=== PATIENT | female | born 1955 | race Caucasian/White ===

== ENCOUNTER 2017-05-02 07:52 | Emergency (ER) | payer OTHER ==
[2017-05-02] MEDS ORDERED: MORPHINE SULFATE 4 MG/ML SYRINGE IV STA (08:32)
--- NOTE | 2017-05-02 08:53 | ED ---
General Adult HPI - General Chief complaint: Chest Pain Stated complaint: Chest Pain Time Seen by Provider: 05/02/17 08:23 Source: patient, RN notes reviewed, old records reviewed Mode of arrival: wheelchair Limitations: no limitations - History of Present Illness Initial comments: This is a 62-year-old female to the ER for evaluation. Patient presents today for evaluation regarding chest pain. Patient does have history of chest pain. Patient is chest pain today is right-sided and reproducible. Worse with moving worse with moving her right arm. No fevers cough or congestion, no travel history. - Related Data Home Medications Medication Instructions Recorded Confirmed Atorvastatin Calcium [Lipitor] 10 mg PO HS 05/02/17 05/02/17 Cholecalciferol [Vitamin D3] 1,000 unit PO DAILY 05/02/17 05/02/17 Fesoterodine Fumarate [Toviaz] 8 mg PO HS 05/02/17 05/02/17 Multivitamins, Thera [Multivitamin 1 tab PO DAILY 05/02/17 05/02/17 (formulary)] Allergies Allergy/AdvReac Type Severity Reaction Status Date / Time No Known Allergies Allergy Unverified 05/02/17 08:46 Review of Systems ROS Statement: Those systems with pertinent positive or pertinent negative responses have been documented in the HPI. ROS Other: All systems not noted in ROS Statement are negative. Past Medical History Past Medical History: No Reported History History of Any Multi-Drug Resistant Organisms: None Reported Past Surgical History: Appendectomy, Section Additional Past Surgical History / Comment(s): Cataract surgery Past Psychological History: Anxiety Smoking Status: Current some day smoker Past Alcohol Use History: None Reported Past Drug Use History: None Reported General Exam Limitations: no limitations General appearance: alert, in no apparent distress Head exam: Present: atraumatic, normocephalic, normal inspection Eye exam: Present: normal appearance, PERRL, EOMI. Absent: scleral icterus, conjunctival injection, periorbital swelling ENT exam: Present: normal exam, mucous membranes moist Neck exam: Present: normal inspection. Absent: tenderness, meningismus, lymphadenopathy Respiratory exam: Present: normal lung sounds bilaterally. Absent: respiratory distress, wheezes, rales, rhonchi, stridor Cardiovascular Exam: Present: regular rate, normal rhythm, normal heart sounds. Absent: systolic murmur, diastolic murmur, rubs, gallop, clicks GI/Abdominal exam: Present: soft, normal bowel sounds. Absent: distended, tenderness, guarding, rebound, rigid Extremities exam: Present: normal inspection, full ROM, normal capillary refill. Absent: tenderness, pedal edema, joint swelling, calf tenderness Back exam: Present: normal inspection Neurological exam: Present: alert, oriented X3, CN II-XII intact Psychiatric exam: Present: normal affect, normal mood Skin exam: Present: warm, dry, intact, normal color. Absent: rash Course Vital Signs 05/02/17 05/02/17 05/02/17 07:56 09:00 10:00 Temperature 98.4 F Pulse Rate 90 72 76 Respiratory 18 18 18 Rate Blood Pressure 136/92 145/89 143/71 O2 Sat by Pulse 97 97 98 Oximetry - Reevaluation(s) Reevaluation #1: 05/02/17 11:04 Patient's in no acute distress, vital signs are normal and stable, pain is improved EKG Findings - EKG Comments: EKG Findings:: EKG shows normal sinus a rate of 85, ME 142, QRS 78, QTC 435 Medical Decision Making - Medical Decision Making 62 female here with nonspecific chest pain right-sided chest pain worse with movement 3 days. No significant cause found. This pain. Typical, is reproducible with palpation, patient will be discharged home - Lab Data Result diagrams: 05/02/17 08:20 05/02/17 08:20 Lab Results 05/02/17 05/02/17 05/02/17 Range/Units 08:20 08:20 08:20 WBC 7.0 (3.8-10.6) k/uL RBC 4.63 (3.80-5.40) m/uL Hgb 14.6 (11.4-16.0) gm/dL Hct 43.5 (34.0-46.0) % MCV 94.0 (80.0-100.0) fL MCH 31.5 (25.0-35.0) pg MCHC 33.5 (31.0-37.0) g/dL RDW 13.5 (11.5-15.5) % Plt Count 192 (150-450) k/uL Neutrophils % 64 % Lymphocytes % 24 % Monocytes % 7 % Eosinophils % 3 % Basophils % 1 % Neutrophils # 4.5 (1.3-7.7) k/uL Lymphocytes # 1.7 (1.0-4.8) k/uL Monocytes # 0.5 (0-1.0) k/uL Eosinophils # 0.2 (0-0.7) k/uL Basophils # 0.0 (0-0.2) k/uL PT (9.0-12.0) sec INR (<1.2) APTT (22.0-30.0) sec Sodium 142 (137-145) mmol/L Potassium 4.6 (3.5-5.1) mmol/L Chloride 107 (98-107) mmol/L Carbon Dioxide 28 (22-30) mmol/L Anion Gap 7 mmol/L BUN 14 (7-17) mg/dL Creatinine 0.68 (0.52-1.04) mg/dL Est GFR (MDRD) Af Amer >60 (>60 ml/min/1.73 sqM) Est GFR (MDRD) Non-Af >60 (>60 ml/min/1.73 sqM) Glucose 99 (74-99) mg/dL Calcium 9.3 (8.4-10.2) mg/dL Magnesium 2.1 (1.6-2.3) mg/dL Total Bilirubin 0.7 (0.2-1.3) mg/dL AST 23 (14-36) U/L ALT 26 (9-52) U/L Alkaline Phosphatase 71 (38-126) U/L Total Creatine Kinase 41 (30-135) U/L CK-MB (CK-2) 0.6 (0.0-2.4) ng/mL CK-MB (CK-2) Rel Index 1.5 Troponin I <0.012 (0.000-0.034) ng/mL Total Protein 6.7 (6.3-8.2) g/dL Albumin 4.2 (3.5-5.0) g/dL Lipase 96 (23-300) U/L 05/02/17 Range/Units 08:20 WBC (3.8-10.6) k/uL RBC (3.80-5.40) m/uL Hgb (11.4-16.0) gm/dL Hct (34.0-46.0) % MCV (80.0-100.0) fL MCH (25.0-35.0) pg MCHC (31.0-37.0) g/dL RDW (11.5-15.5) % Plt Count (150-450) k/uL Neutrophils % % Lymphocytes % % Monocytes % % Eosinophils % % Basophils % % Neutrophils # (1.3-7.7) k/uL Lymphocytes # (1.0-4.8) k/uL Monocytes # (0-1.0) k/uL Eosinophils # (0-0.7) k/uL Basophils # (0-0.2) k/uL PT 9.6 (9.0-12.0) sec INR 0.9 (<1.2) APTT 24.1 (22.0-30.0) sec Sodium (137-145) mmol/L Potassium (3.5-5.1) mmol/L Chloride (98-107) mmol/L Carbon Dioxide (22-30) mmol/L Anion Gap mmol/L BUN (7-17) mg/dL Creatinine (0.52-1.04) mg/dL Est GFR (MDRD) Af Amer (>60 ml/min/1.73 sqM) Est GFR (MDRD) Non-Af (>60 ml/min/1.73 sqM) Glucose (74-99) mg/dL Calcium (8.4-10.2) mg/dL Magnesium (1.6-2.3) mg/dL Total Bilirubin (0.2-1.3) mg/dL AST (14-36) U/L ALT (9-52) U/L Alkaline Phosphatase (38-126) U/L Total Creatine Kinase (30-135) U/L CK-MB (CK-2) (0.0-2.4) ng/mL CK-MB (CK-2) Rel Index Troponin I (0.000-0.034) ng/mL Total Protein (6.3-8.2) g/dL Albumin (3.5-5.0) g/dL Lipase (23-300) U/L - Radiology Data Radiology results: report reviewed (Chest x-ray is negative, ultrasound gallbladder is negative CT CHEST NEGATIVE FOR PE), image reviewed Disposition Clinical Impression: Atypical chest pain, Costalchondritis, Chest wall syndrome Disposition: HOME SELF-CARE Condition: Good Instructions: Chest Pain (ED), Costochondritis (ED) Referrals: Cesar Guerra MD [Primary Care Provider] - 1-2 days
--- NOTE | 2017-05-02 09:04 | XR ---
EXAMINATION TYPE: XR chest 2V DATE OF EXAM: 05/02/2017 COMPARISON: 09/17/2010 HISTORY: Shortness of breath TECHNIQUE: Frontal and lateral views of the chest are obtained. FINDINGS: Scattered senescent parenchymal changes noted. Hyperinflation compatible with COPD. No evidence for infiltrate. No evidence for atelectasis. Heart size is stable. Mediastinal structures are stable and grossly unremarkable. No evidence for hilar prominence. Degenerative changes dorsal spine. IMPRESSION: 1. No evidence for acute pulmonary disease.
[2017-05-02 09:12] LABS: Basophils % (A) 1 %; CH 31.2; CHCM 33.3; Eosinophils # (A) 0.2 k/uL (0-0.7); Eosinophils % (A) 3 %; HCT 43.5 % (34.0-46.0); HDW 2.33; HGB 14.6 gm/dL (11.4-16.0); Luc # (Auto) 0.14; Luc % (Auto) 2; Lymphocytes # (A) 1.7 k/uL (1.0-4.8); Lymphocytes % (A) 24 %; MCH 31.5 pg (25.0-35.0); MCHC 33.5 g/dL (31.0-37.0); Mean Platelet Volume 8.5; Monocytes # (A) 0.5 k/uL (0-1.0); Monocytes % (A) 7 %; Neutrophils # (A) 4.5 k/uL (1.3-7.7); Neutrophils % (A) 64 %; RBC 4.63 m/uL (3.80-5.40); RDW 13.5 % (11.5-15.5); WBC (Perox) 6.51
[2017-05-02] MEDS ORDERED: RX INFO: IV CONTRAST WAS GIVEN 1 EACH MISC MISCELLANE PRN (09:16)
[2017-05-02 09:22] LABS: ALT 26 U/L (9-52); AST 23 U/L (14-36); Alkaline Phosphatase 71 U/L (38-126); Anion Gap 7 mmol/L; Blood Urea Nitrogen 14 mg/dL (7-17); Calcium 9.3 mg/dL (8.4-10.2); Carbon Dioxide 28 mmol/L (22-30); Chloride 107 mmol/L (98-107); Glucose 99 mg/dL (74-99); Magnesium 2.1 mg/dL (1.6-2.3); Non-African American GFR(MDRD) >60 (>60 ml/min/1.73 sqM); Potassium 4.6 mmol/L (3.5-5.1); Sodium 142 mmol/L (137-145); Total Bilirubin 0.7 mg/dL (0.2-1.3); Total Protein 6.7 g/dL (6.3-8.2)
[2017-05-02 09:30] LABS: INR 0.9 (<1.2); Partial Thromboplastin Time 24.1 sec (22.0-30.0); Prothrombin Time 9.6 sec (9.0-12.0)
[2017-05-02 09:41] LABS: Creatine Kinase 41 U/L (30-135)
[2017-05-02 09:53] LABS: Creatine Kinase MB 0.6 ng/mL (0.0-2.4); Troponin I <0.012 ng/mL (0.000-0.034)
--- NOTE | 2017-05-02 10:02 | US ---
EXAMINATION TYPE: US gallbladder DATE OF EXAM: 05/02/2017 COMPARISON: NONE CLINICAL HISTORY: Pain. EXAM MEASUREMENTS: Liver Length: 15.9 cm Gallbladder Wall: 0.3 cm CBD: 0.3 cm Right Kidney: 11.0 x 4.2 x 4.8 cm Extensive midline bowel gas, large body habitus. Pancreas: partially obscured by bowel gas, Liver: wnl Gallbladder: wnl Evidence for sonographic Vargas's sign: no CBD: not well visualized due to overlying bowel, portions visualized wnl Right Kidney: wnl IMPRESSION: 1. Fatty liver.
--- NOTE | 2017-05-02 11:02 | CT ---
EXAMINATION TYPE: CT angio chest DATE OF EXAM: 05/02/2017 COMPARISON: 09/22/2010 HISTORY: 62-year-old female with right-sided chest pain TECHNIQUE: Contiguous axial scanning of the chest performed with IV Contrast, patient injected with 1 00 mL of Omnipaque 350. Coronal/sagittal MIP reconstructions performed. CT DLP: 497.20 mGycm Automated exposure control for dose reduction was used. FINDINGS: The heart is normal size without pericardial effusion. Aorta is normal-caliber with conventional arch vessel branching anatomy. Scattered nonenlarged mediastinal lymph nodes are present. No thoracic lymphadenopathy by CT size cri teria. Satisfactory opacification of the pulmonary arterial system. Mild respiratory motion artifacts are pr esent. No evidence for pulmonary embolus. Mild biapical pleural-parenchymal scarring and mild centrilobular emphysema scattered throughout the lungs. Scattered scarring or atelectasis present such as in the anterior right midlung and inferior l ingula. No consolidation or pleural effusion. Small hiatal hernia. Visualized upper abdomen is no gross abnormality. Bones: No osseous destructive process. IMPRESSION: 1. NO EVIDENCE FOR PULMONARY EMBOLUS. 2. COPD WITH MILD EMPHYSEMA. 3. SMALL HIATAL HERNIA.
[2017-05-02 11:14] VITALS: BP 131/70; PULSE 80; RESP 20; TEMP 97.5
== END 2017-05-02 11:22 | disposition home or self-care (01) ==
LOC: EC 07:52
DX: M94.0 Chondrocostal junction syndrome [Tietze] (principal); R07.89 Other chest pain; F17.200 Nicotine dependence, unspecified, uncomplicated; Z79.899 Other long term (current) drug therapy
CPT/HCPCS: 36415; 93005; 80053; 82550; 82553; 83690; 83735; 84484; 85025; 85610; 85730; 71020; 76705; 71275; 99285; 96374; J2270; Q9967

== ENCOUNTER → 2017-05-25 | Outpatient (CLI) | payer OTHER ==
--- NOTE | 2017-05-29 11:59 | MM ---
Reason for exam: screening (asymptomatic). Last mammogram was performed 6 years and 10 months ago. History: Patient is postmenopausal. Excisional biopsy of the left breast, 1999. Physical Findings: A clinical breast exam by your physician is recommended on an annual basis and results should be correlated with mammographic findings. MG Screening Mammo w CAD Bilateral CC and MLO view(s) were taken. Prior study comparison: July 26, 2010, bilateral digital screening mammogram. There are scattered fibroglandular densities. Finding: There are typically benign round calcifications in both breasts. There is no discrete abnormality. ASSESSMENT: Benign, BI-RAD 2 RECOMMENDATION: Routine screening mammogram of both breasts in 1 year.
== END | disposition home or self-care (01) ==
LOC: RADMAMWWP 15:43
PROVIDERS: ATTEND Family Medicine
DX: Z12.31 Encounter for screening mammogram for malignant neoplasm of breast (principal)

== ENCOUNTER → 2017-09-05 | Outpatient (CLI) | payer OTHER | END | disposition home or self-care (01) | LOC: PROCWHC3 11:00 | PROVIDERS: ATTEND Family Medicine | DX: R52 Pain, unspecified (principal); R53.83 Other fatigue | CPT/HCPCS: 87502 ==

== ENCOUNTER → 2017-11-29 | Outpatient (CLI) | payer OTHER ==
--- NOTE | 2017-11-29 13:03 | ECHOS ---
STRESS ECHOCARDIOGRAM INDICATIONS: Chest pain. BASELINE HEART RATE: 64 BASELINE BLOOD PRESSURE: 103/55 MAXIMUM HEART RATE: 142 MAXIMUM BLOOD PRESSURE: 192/66 85% MPHR: 136 100% MPHR: 160 METS: 8.5 MAXIMUM STAGE REACHED: 3 TOTAL EXERCISE TIME: 7:00 CLINICAL INFORMATION: Baseline heart rate 64 beats per minute. Baseline blood pressure 103/55 mmHg. Baseline 12-lead ECG shows normal sinus rhythm with early repolarization abnormality, normal sinus rhythm, normal cardiac intervals, normal ST segments. Patient exercised on a Solomon protocol for 7 minutes achieving a peak heart rate of 142 beats per minute. Normal blood pressure response to exercise. There was a 0.5-[address] depression inferolaterally at peak exercise and into recovery. She complained shortness of breath at peak exercise. The 2D images at baseline showed normal LV size and systolic function without segmental wall motion abnormalities. At peak exercise, there was excellent augmentation of LV contractility without development of any wall motion abnormalities. At recovery, regional global LV systolic function remained normal. IMPRESSION: Borderline ECG changes during peak exercise and into recovery associated with shortness of breath. No echocardiographic evidence of ischemia. MMODL / IJN: [id number] /
--- NOTE | 2017-11-29 14:56 | NM ---
EXAMINATION TYPE: NM bone/joint limited DATE OF EXAM: 11/29/2017 COMPARISON: NONE HISTORY: Pain in limb per order. Right anterior distal lower leg pain for months per patient. History of surgery on bilateral feet per patient. TECHNIQUE: After the intravenous administration of 25.5 mCi Tc 99m MDP. Images acquired 3 hours pos t injection. Multiple views of bilateral lower extremities including legs ankles and feet are submit sonya. There is no asymmetric abnormal uptake within the visualized osseous structures to suggest acute proc ess with particular attention to anterior aspect of the right lower leg near the region of ankle. Are as of increased uptake bilateral knees is felt to reflect product of degenerative change with slight varum positioning noted. IMPRESSION: As above.
== END | disposition home or self-care (01) ==
LOC: RADNMMAIN 09:10
PROVIDERS: ATTEND Family Medicine
DX: R06.02 Shortness of breath (principal); R07.9 Chest pain, unspecified; R93.6 Abnormal findings on diagnostic imaging of limbs; M79.661 Pain in right lower leg
CPT/HCPCS: 93017; 93350; 78300; A9503

== ENCOUNTER → 2018-01-11 | Outpatient (CLI) | payer OTHER ==
--- NOTE | 2018-01-12 07:17 | US ---
EXAMINATION TYPE: US carotid duplex BILAT DATE OF EXAM: 01/11/2018 COMPARISON: NONE CLINICAL HISTORY: I99.9 SMALL VESSEL DISEASE. EXAM MEASUREMENTS: RIGHT: Peak Systolic Velocity (PSV) cm/sec ----- Right CCA: 74.3 ----- Right ICA: 72.9 ----- Right ECA: 79.0 ICA/CCA ratio: 1.0 RIGHT: End Diastole cm/sec ----- Right CCA: 27.0 ----- Right ICA: 26.7 ----- Right ECA: 17.1 LEFT: Peak Systolic Velocity (PSV) cm/sec ----- Left CCA: 69.4 ----- Left ICA: 90.8 ----- Left ECA: 122.4 ICA/CCA ratio: 1.3 LEFT: End Diastole cm/sec ----- Left CCA: 25.8 ----- Left ICA: 42.4 ----- Left ECA: 31.8 VERTEBRALS (direction of flow): Right Vertebral: Antegrade Left Vertebral: Antegrade Rhythm: Normal No significant stenosis seen, no elevated velocities, mild bilateral plaque noted. IMPRESSION: Bilateral grayscale atheromatous plaquing greatest within the left carotid bulb without hemodynamically significant stenosis in either visualized carotid arterial system.
== END | disposition home or self-care (01) ==
LOC: RADUSWWP 15:52
PROVIDERS: ATTEND Psychiatry & Neurology Neurology
DX: I65.22 Occlusion and stenosis of left carotid artery (principal)
CPT/HCPCS: 93880

== ENCOUNTER → 2018-07-30 | Outpatient (CLI) | payer OTHER ==
--- NOTE | 2018-08-02 08:47 | MM ---
Reason for exam: screening (asymptomatic). Last mammogram was performed 1 year and 2 months ago. History: Patient is postmenopausal. Excisional biopsy of the left breast, 1999. Physical Findings: A clinical breast exam by your physician is recommended on an annual basis and results should be correlated with mammographic findings. MG Screening Mammo w CAD Bilateral CC and MLO view(s) were taken. Prior study comparison: May 25, 2017, bilateral MG screening mammo w CAD. July 26, 2010, bilateral digital screening mammogram. Finding: There is a 7 mm equal density (isodense), circumscribed lobulated mass located 9 cm from the nipple in the middle position of the right breast on CC view. New finding since May 25, 2017 and July 26, 2010. ASSESSMENT: Incomplete: need additional imaging evaluation, BI-RAD 0 RECOMMENDATION: Special view mammogram of the right breast. If lesion persists on supplemental views, image directed ultrasound is recommended. [facility] will attempt to contact patient to return for supplemental views and ultrasound if indicated.
== END | disposition home or self-care (01) ==
LOC: RADMAMWWP 13:23
PROVIDERS: ATTEND Family Medicine
DX: Z12.31 Encounter for screening mammogram for malignant neoplasm of breast (principal)
CPT/HCPCS: 77067

== ENCOUNTER → 2018-08-29 | Outpatient (CLI) | payer OTHER ==
--- NOTE | 2018-08-31 15:47 | MM ---
Reason for exam: additional evaluation requested from abnormal screening. Last mammogram was performed 1 month ago. History: Patient is postmenopausal. Excisional biopsy of the left breast, 1999. Physical Findings: Nurse did not find any significant physical abnormalities on exam. MG Work Up Mamm w CAD RT Spot compression CC and LM view(s) were taken of the right breast. Prior study comparison: July 30, 2018, bilateral MG screening mammo w CAD. May 25, 2017, bilateral MG screening mammo w CAD. There is a 9mm oval circumscribed density in the right breast upper middle position, this persists on additional views. ASSESSMENT: Incomplete: need additional imaging evaluation, BI-RAD 0 RECOMMENDATION: Ultrasound of the right breast.
--- NOTE | 2018-08-31 15:51 | USB ---
History: Patient is postmenopausal. Excisional biopsy of the left breast, 1999. US Breast Workup Limited RT Right limited breast ultrasound including focal area of concern, retroareolar and axilla demonstrates a 6 x 2 x 5 mm oval hypoechoic lesion at 10 o'clock. These results were verbally communicated with the patient and result sheet given to the patient on 08/29/18. ASSESSMENT: Probably benign, BI-RAD 3 RECOMMENDATION: Ultrasound and follow-up diagnostic mammogram of the right breast in 6 months.
== END | disposition home or self-care (01) ==
LOC: RADMAMWWP 14:52
PROVIDERS: ATTEND Family Medicine
DX: R92.8 Other abnormal and inconclusive findings on diagnostic imaging of breast (principal)
CPT/HCPCS: 77065

== ENCOUNTER → 2019-02-26 | Outpatient (CLI) | payer OTHER ==
--- NOTE | 2019-02-27 08:47 | MM ---
Reason for exam: follow-up at short interval from prior study. Last mammogram was performed 6 months ago. History: Patient is postmenopausal. Excisional biopsy of the left breast, 1999. Physical Findings: Nurse did not find any significant physical abnormalities on exam. MG 3D Diag Mammo W/Cad RT CC and MLO view(s) were taken of the right breast. Prior study comparison: August 29, 2018, right breast MG work up mamm w CAD RT. July 30, 2018, bilateral MG screening mammo w CAD. The breast tissue is heterogeneously dense. This may lower the sensitivity of mammography. There is a stable right upper outer quadrant middle depth 8mm mass at middle depth. These results were verbally communicated with the patient and result sheet given to the patient on 02/26/19. ASSESSMENT: Benign, BI-RAD 2 RECOMMENDATION: Return to routine screening mammogram schedule for both breasts. Back on schedule for July 2019.
--- NOTE | 2019-02-27 08:48 | USB ---
Reason for exam: follow-up at short interval from prior study. History: Patient is postmenopausal. Excisional biopsy of the left breast, 1999. US Breast Limited RT Right limited breast ultrasound including focal area of concern, retroareolar and axilla demonstrates a 0.4 x 0.2 x 0.5cm hypoechoic lesion at 10 o'clock, previously 0.5 x 0.2 x 0.6cm. Corresponds to the probable lymph node on mammogram. These results were verbally communicated with the patient and result sheet given to the patient on 02/26/19. ASSESSMENT: Benign, BI-RAD 2 RECOMMENDATION: Return to routine screening mammogram schedule for both breasts. Back on schedule for July 2019.
== END | disposition home or self-care (01) ==
LOC: RADMAMWWP 13:36
PROVIDERS: ATTEND Family Medicine
DX: R92.8 Other abnormal and inconclusive findings on diagnostic imaging of breast (principal)
CPT/HCPCS: 77065; 76642; G0279; 77061

== ENCOUNTER → 2019-09-17 | Outpatient (CLI) | payer OTHER ==
--- NOTE | 2019-09-18 10:21 | MM ---
Reason for exam: screening (asymptomatic). Last mammogram was performed 7 months ago. History: Patient is postmenopausal. Excisional biopsy of the left breast, 1999. Physical Findings: A clinical breast exam by your physician is recommended on an annual basis and results should be correlated with mammographic findings. MG Screening Mammo w CAD Bilateral CC and MLO view(s) were taken. Prior study comparison: February 26, 2019, right breast MG 3d diag mammo w/cad RT. August 29, 2018, right breast MG work up mamm w CAD RT. There are scattered fibroglandular densities. There is a stable right upper outer quadrant middle depth mass. There are stable left upper outer quadrant anterior depth calcifications. No suspicious abnormality. No significant changes when compared with prior studies. ASSESSMENT: Benign, BI-RAD 2 RECOMMENDATION: Routine screening mammogram of both breasts in 1 year.
== END | disposition home or self-care (01) ==
LOC: RADMAMWWP 09:11
PROVIDERS: ATTEND Family Medicine
DX: Z12.31 Encounter for screening mammogram for malignant neoplasm of breast (principal)
CPT/HCPCS: 77067

== ENCOUNTER → 2020-07-12 | Outpatient (CLI) | payer OTHER ==
--- NOTE | 2020-07-12 16:29 | BD ---
EXAMINATION TYPE: Axial Bone Density DATE OF EXAM: 07/12/2020 COMPARISON: NONE CLINICAL HISTORY: Height: 62.5 IN Weight: 192 LBS FRAX RISK QUESTIONS: Current Tobacco Use: YES RISK FACTORS HISTORY OF: Active: MODERATE Diet low in dairy products/other sources of calcium: YES Postmenopausal woman: AGE 51 MEDICATIONS: Additional Medications: VIT D ONCE A MONTH, OVERACTIVE BLADDER MEDS, TREMOR MEDS, CHOLESTEROL MEDS, H YDROCODONE EXAM MEASUREMENTS: Bone mineral densitometry was performed using the [employer] System. Bone mineral density as measured about the Lumbar spine is: ----- L1-L4(G/cm2): 1.108 T Score Values are as follows: ----- L2: -1.8 ----- L3: -0.5 ----- L4: 0.5 ----- L1-L4: -0.6 Bone mineral density BASELINE Bone mineral density about the R hip (g/cm2): 0.838 Bone mineral density about the L hip (g/cm2): 0.847 T Score values are as follows: -----R Neck: -1.4 -----L Neck: -1.4 -----R Total: -1.1 -----L Total: -1.1 Bone mineral density BASELINE IMPRESSION: Osteopenia (T Score between -2.5 and -1). There is slightly increased risk of fracture and the patient may be considered for treatment. Re-Screen 2-5 years. NOTE: T-SCORE=SD OF THE YOUNG ADULT MEAN.
== END | disposition home or self-care (01) ==
LOC: RADBDWWP 07:48
PROVIDERS: ATTEND Internal Medicine
DX: M85.80 Other specified disorders of bone density and structure, unspecified site (principal)
CPT/HCPCS: 77080

== ENCOUNTER → 2020-09-14 | Outpatient (CLI) | payer OTHER ==
--- NOTE | 2020-09-14 16:45 | MR ---
EXAMINATION TYPE: MR knee RT wo con DATE OF EXAM: Outside radiograph 08/31/2020: HISTORY: 65-year-old female M25.561, right knee pain, hard to straighten TECHNIQUE: Multiplanar, multisequence imaging of the right knee is performed without IV contrast. FINDINGS: The ACL, PCL, MCL, and LCL complex are intact. There is an oblique tear involving the junction of the posterior horn and body of the medial meniscus . Overall medial compartment articular cartilage volume is maintained. Small inner margin radial tear involving the body of the lateral meniscus. Overall lateral articular cartilage volume maintained. The patellofemoral compartment appears intact. Extensor mechanism is intact. Some increased signal at the quadriceps insertion suggesting tendinosis . Nonspecific anterior soft tissue swelling. Physiologic joint fluid. No Luz's cyst. Some edema involving the lateral gastrocnemius muscle belly. Normal popliteal artery anatomy. Mild generalized decrease in overall muscle bulk. No suspicious bone marrow replacement. IMPRESSION: 1. Oblique tear at the junction of the posterior horn and body of the medial meniscus. 2. Small inner margin radial tear involving the body of the lateral meniscus. 3. Edema involving the lateral head gastrocnemius muscle could be reactive to altered biomechanics or could reflect a mild muscle strain.
== END | disposition home or self-care (01) ==
LOC: RADMRIMAIN 13:11
PROVIDERS: ATTEND Orthopaedic Surgery
DX: S83.241A Other tear of medial meniscus, current injury, right knee, initial encounter (principal); S83.281A Other tear of lateral meniscus, current injury, right knee, initial encounter

== ENCOUNTER → 2020-10-06 | Outpatient (CLI) | payer OTHER ==
[2020-10-06 11:20] LABS: Basophils # (A) 0.1 k/uL (0-0.2); Basophils % (A) 1 %; Eosinophils # (A) 0.2 k/uL (0-0.7); Eosinophils % (A) 3 %; HCT 44.4 % (34.0-46.0); HGB 14.5 gm/dL (11.4-16.0); Lymphocytes # (A) 1.9 k/uL (1.0-4.8); Lymphocytes % (A) 28 %; MCH 31.3 pg (25.0-35.0); MCHC 32.7 g/dL (31.0-37.0); MCV 95.9 fL (80.0-100.0); Monocytes # (A) 0.5 k/uL (0-1.0); Monocytes % (A) 7 %; Neutrophils # (A) 4.1 k/uL (1.3-7.7); Neutrophils % (A) 60 %; Platelet Count 221 k/uL (150-450); RBC 4.63 m/uL (3.80-5.40); RDW 13.1 % (11.5-15.5); WBC 6.8 k/uL (3.8-10.6)
== END | disposition home or self-care (01) ==
LOC: LABPAT 09:54
PROVIDERS: ATTEND Orthopaedic Surgery
DX: Z01.818 Encounter for other preprocedural examination (principal); M23.91 Unspecified internal derangement of right knee
CPT/HCPCS: 36415; 80051; 85025; 93005

== ENCOUNTER 2020-10-13 08:19 | Day surgery (SDC) | payer OTHER ==
[2020-10-07 14:47] VITALS: BMI 32.9
--- NOTE | 2020-10-12 15:08 | HP ---
HISTORY AND PHYSICAL Surgery is scheduled for 10/13/2020. Viv Stout is a 65-year-old patient seen with progressive right knee pain. We discussed options for treatment. She elected to proceed with arthroscopy. Consent was obtained. PAST MEDICAL HISTORY: Hyperlipidemia. PAST SURGICAL HISTORY: Appendectomy, cataract surgery, section. DAILY MEDICATIONS: 1. Atorvastatin. 2. Bupropion. 3. Vitamins. ALLERGIES: None. SOCIAL HISTORY: She smokes 1.5 packs cigarettes daily. PHYSICAL EVALUATION RIGHT KNEE: Range of motion -2/3 to 125. Mild effusion. Tenderness medial joint line. Positive medial Margarette's. Crepitus medial and patellofemoral compartments on range of motion. Ligaments stable. Hip rotation without pain. Distal neurovascular exam intact Right knee radiographs revealed mild osteoarthritis. MRI right knee revealed medial and lateral meniscal tears. IMPRESSION: 1. Internal derangement right knee with medial and lateral meniscal tears. 2. Hyperlipidemia. 3. Chronic low back pain. PLAN: Right knee arthroscopy with partial meniscectomy and debridement. MMODL / IJN: [id number] /
[~2020-10-13 08:19] MED LIST: DEXAMETHASONE SOD PHOSPHATE 4 MG/ML 1 ML VIAL IV ONE; HYDROmorphone 0.5 MG/0.5 ML SYRINGE IVP PRN; LACTATED RINGERS 1,000 ML IV SCH; LIDOCAINE 1% (10MG/ML) FOR IV START INTRADERMA PRN; ONDANSETRON 4 MG/2 ML VIAL IVP ONE
[2020-10-13] MEDS ORDERED: BUPIVACAINE (PF) 0.25% 30 ML VIAL SQ ONE ×2 (09:37→10:13)
[2020-10-13] MEDS ORDERED: PROPOFOL 10 MG/ML 20 ML VIAL IV ONE (09:39)
[2020-10-13] MEDS ORDERED: MIDAZOLAM 2 MG/2 ML VIAL ONE (09:39)
[2020-10-13] MEDS ORDERED: LIDOCAINE 1% INJ 10MG/ML (20 ML MDV) ONE (09:39)
[2020-10-13] MEDS ORDERED: PHENYLEPHRINE-0.9% NACL SYG 1,000 MCG/10 ML SYRINGE ONE (09:39)
[2020-10-13] MEDS ORDERED: fentaNYL (PF) 50 MCG/ML 2 ML AMP ONE (09:39)
--- NOTE | 2020-10-13 10:28 | P.OP ---
Date of Procedure: 10/13/20 Preoperative Diagnosis: Internal derangement right knee Postoperative Diagnosis: 1. Tear lateral meniscus right knee 2. Reactive synovitis medial, lateral and suprapatellar compartments right knee Procedure(s) Performed: 1. Arthroscopic partial lateral meniscectomy right knee 2. Arthroscopic partial synovectomy medial, lateral and suprapatellar compartments right knee Anesthesia: KRISTIA, local Surgeon: Siddhartha Epps Estimated Blood Loss (ml): 7 Pathology: none sent Condition: stable Disposition: PACU Indications for Procedure: 65-year-old patient seen with progressive right knee pain. After treatment options were discussed, she elected to proceed with arthroscopy. Operative Findings: See description of procedure Description of Procedure: Patient was taken to the operative suite. Patient underwent a general anesthetic by the department of anesthesia. Patient was given preoperative antibiotics. The right lower extremity was placed in a well-padded arthroscopic leg kinsey. The right leg was prepped and draped in the normal sterile orthopedic fashion. A lateral parapatellar and suprapatellar incision was made. Trochars were inserted. Arthroscopy was initiated. Suprapatellar pouch revealed diffuse thick reactive synovitis. The patellofemoral joint appeared to articulate congruently. There with grade 1 chondromalacia. The scope was guided into the medial gutter. No loose bodies or plica were identified. The scope was then guided into the medial compartment. A medial parapatellar incision was made. Trocar inserted followed by probe. The medial meniscus was probed and found to be stable. There were grade 1 chondromalacia changes of the medial compartment. There was thick reactive synovitis anteriorly. I introduced a motorized shaver and performed a partial synovectomy decompressing the thick reactive synovitis. The shaver was removed. There was good decompression of the synovitis. Scope and probe were then guided into the intercondylar notch. Cruciates were identified, probed and found to be stable. The scope and probe were then guided into lateral compartment. There were tears involving the lateral meniscus in the mid body and posterior horn areas. There was no significant chondromalacia present. There was thick reactive synovitis anteriorly. I performed a partial lateral meniscectomy down to stable meniscal tissue. I performed a partial synovectomy decompressing the thick reactive synovitis. The shaver was removed. The residual meniscus was probed and found to be stable. There was good decompression of the synovitis. The scope was in guided back into the suprapatellar compartment. I introduced a motorized shaver into the super patellar compartment. I debrided some piecemeal fragments of meniscus I encountered. I performed a partial synovectomy decompressing the thick reactive synovitis. The shaver was removed. I now took one more look around the entire knee, no residual debris. Instruments were now removed from the joint. The joint was infiltrated with .25% Marcaine. Steri-Strips were applied to the portal sites. Sterile dressings were applied. The patient was placed into a HANNAH hose. No tourniquet was utilized. The patient was awakened, transferred to a bed and taken to recovery stable satisfactory condition.
[2020-10-13 10:35] VITALS: RESP 16; TEMP 97
[2020-10-13] MEDS ORDERED: MEPERIDINE 50 MG/ML SYRINGE IVP ONE (10:43)
[2020-10-13] MEDS ORDERED: HYDROmorphone 1 MG/ML 1 ML SYRINGE IVP ONE (10:43)
[2020-10-13 12:06] VITALS: BP 133/81; PULSE 66
== END 2020-10-13 12:23 | disposition home or self-care (01) ==
LOC: OR 08:19
PROVIDERS: ATTEND Orthopaedic Surgery
DX: M23.200 Derangement of unspecified lateral meniscus due to old tear or injury, right knee (principal); M65.861 Other synovitis and tenosynovitis, right lower leg; M17.11 Unilateral primary osteoarthritis, right knee; E78.5 Hyperlipidemia, unspecified; Z98.49 Cataract extraction status, unspecified eye; Z98.891 History of uterine scar from previous surgery; Z90.89 Acquired absence of other organs; F17.210 Nicotine dependence, cigarettes, uncomplicated; G89.29 Other chronic pain; M54.5 Low back pain; N32.81 Overactive bladder; R25.1 Tremor, unspecified; Z97.2 Presence of dental prosthetic device (complete) (partial); Z79.899 Other long term (current) drug therapy
CPT/HCPCS: 29881; 29876; J2250; J1100; J0690; J2405; J2001; J3010; J1170; J2370; J2704

== ENCOUNTER 2021-03-29 10:00 | Observation (INO) | payer OTHER ==
[2021-03-29 12:13] LABS: Chloride 106 mmol/L (98-107); Sodium 137 mmol/L (137-145)
[2021-03-29 12:52] LABS: ALT 17 U/L (4-34); African American GFR (CKD) >90 (>60 ml/min/1.73 sqM); Albumin 4.4 g/dL (3.5-5.0); Anion Gap 6 mmol/L; Blood Urea Nitrogen 16 mg/dL (7-17); Calcium 9.6 mg/dL (8.4-10.2); Carbon Dioxide 25 mmol/L (22-30); Glucose 92 mg/dL (74-99); Non-African American GFR(CKD) >90 (>60 ml/min/1.73 sqM)
[2021-03-29 13:08] LABS: AST 31 U/L (14-36); Alkaline Phosphatase 50 U/L (38-126); Magnesium 2.1 mg/dL (1.6-2.3); Potassium 5.1 mmol/L (3.5-5.1)
[2021-03-29] MEDS ORDERED: ASPIRIN 81 MG PO STA (13:31)
[2021-03-29] MEDS ORDERED: NITROGLYCERIN OINT 1 INCH/GM PACKET TOPICAL STA (13:31)
--- NOTE | 2021-03-29 13:36 | ED ---
General Adult HPI - General Chief complaint: Chest Pain Stated complaint: Chest Pain Time Seen by Provider: 03/29/21 13:00 Source: patient, RN notes reviewed, old records reviewed Mode of arrival: wheelchair Limitations: no limitations - History of Present Illness Initial comments: This is a 66-year-old female who presents emergency Department complaining that she had chest pain today while shopping she hadn't had this kind of chest pain in the past per patient states that last between 5 minutes and it was associated with shortness of breath nausea but no radiation. Patient states she has been experiencing some discomfort in the epigastric region after eating and drinking on multiple occasions during the last month is a food was being stuck in her esophagus. Patient states takes chest pain she experienced today was not similar to those events. Patient states she is a smoker and has high blood pressure. Patient denies any recent fever chills or cough per patient denies lightheadedness or dizziness. Patient denies any palpitations. - Related Data Home Medications Medication Instructions Recorded Confirmed Alendronate Sodium 35 mg PO LEGER 10/07/20 03/29/21 Ergocalciferol [Vitamin D2 (1250 1,250 mcg PO Q30D 10/07/20 03/29/21 Mcg = 46072 Iu)] Oxybutynin Chloride [Oxybutynin 30 mg PO HS 10/07/20 03/29/21 Chloride ER] Primidone [Mysoline] 50 mg PO BID 10/07/20 03/29/21 busPIRone HCL 15 mg PO BID PRN 10/07/20 03/29/21 Aspirin EC [Ecotrin Low Dose] 81 mg PO DAILY 03/29/21 03/29/21 Atorvastatin [Lipitor] 40 mg PO HS 03/29/21 03/29/21 Taylor Gummy 1 tab PO DAILY 03/29/21 03/29/21 HYDROcodone/APAP 10-325MG [[place] 1 tab PO QID PRN 03/29/21 03/29/21 10-325] Multivitamin [Multivitamins Adult 1 tab PO DAILY 03/29/21 03/29/21 Gummies] Pantoprazole Sodium [Protonix] 40 mg PO DAILY 03/29/21 03/29/21 Topiramate [Topamax] 25 mg PO BID 03/29/21 03/29/21 Allergies Allergy/AdvReac Type Severity Reaction Status Date / Time No Known Allergies Allergy Verified 03/29/21 14:17 Review of Systems ROS Statement: Those systems with pertinent positive or pertinent negative responses have been documented in the HPI. ROS Other: All systems not noted in ROS Statement are negative. Past Medical History Past Medical History: No Reported History History of Any Multi-Drug Resistant Organisms: None Reported Past Surgical History: Orthopedic Surgery Additional Past Surgical History / Comment(s): Cataract surgery Past Psychological History: Anxiety Smoking Status: Current every day smoker Past Alcohol Use History: None Reported Past Drug Use History: None Reported General Exam - General Exam Comments Initial Comments: GENERAL: Patient is well-developed and well-nourished. Patient is nontoxic and well- hydrated and is in no acute distress. ENT: Neck is soft and supple. No significant lymphadenopathy is noted. Oropharynx is clear. Moist mucous membranes. Neck has full range of motion without eliciting any pain. EYES: The sclera were anicteric and conjunctiva were pink and moist. Extraocular movements were intact and pupils were equal round and reactive to light. Eyelids were unremarkable. PULMONARY: Unlabored respirations. Good breath sounds bilaterally. No audible rales rhonchi or wheezing was noted. CARDIOVASCULAR: There is a regular rate and rhythm without any murmurs gallops or rubs. ABDOMEN: Soft and nontender with normal bowel sounds. No palpable organomegaly was noted. There is no palpable pulsatile mass. SKIN: Skin is clear with no lesions or rashes and otherwise unremarkable. NEUROLOGIC: Patient is alert and oriented x3. Cranial nerves II through XII are grossly intact. Motor and sensory are also intact. Normal speech, volume and content. Symmetrical smile. MUSCULOSKELETAL: Normal extremities with adequate strength and full range of motion. No lower extremity swelling or edema. No calf tenderness. LYMPHATICS: No significant lymphadenopathy is noted PSYCHIATRIC: Normal psychiatric evaluation. Limitations: no limitations Course Vital Signs 03/29/21 03/29/21 03/29/21 10:01 13:20 13:24 Temperature 97.7 F Pulse Rate 74 51 L Respiratory 18 18 18 Rate Blood Pressure 118/80 155/82 O2 Sat by Pulse 96 99 Oximetry 03/29/21 14:10 Temperature Pulse Rate 71 Respiratory 18 Rate Blood Pressure 142/74 O2 Sat by Pulse 96 Oximetry Medical Decision Making - Medical Decision Making EKG shows normal sinus rhythm at 66 bpm WI interval 148 QRS is 78 QT interval is 392 QTC is 410. Patient's EKG shows no ST segment elevation or depression. Chest x-ray shows no acute abnormality. I spoke with Dr. Paris he agreed to admit the patient admitted the patient wrote admitting orders. - Lab Data Result diagrams: 03/29/21 13:27 03/29/21 11:30 Lab Results 03/29/21 03/29/21 03/29/21 Range/Units 11:30 11:30 11:30 WBC (3.8-10.6) k/uL RBC (3.80-5.40) m/uL Hgb (11.4-16.0) gm/dL Hct (34.0-46.0) % MCV (80.0-100.0) fL MCH (25.0-35.0) pg MCHC (31.0-37.0) g/dL RDW (11.5-15.5) % Plt Count (150-450) k/uL MPV Neutrophils % % Lymphocytes % % Monocytes % % Eosinophils % % Basophils % % Neutrophils # (1.3-7.7) k/uL Lymphocytes # (1.0-4.8) k/uL Monocytes # (0-1.0) k/uL Eosinophils # (0-0.7) k/uL Basophils # (0-0.2) k/uL PT (9.0-12.0) sec INR (<1.2) APTT (22.0-30.0) sec Sodium 137 (137-145) mmol/L Potassium 5.1 (3.5-5.1) mmol/L Chloride 106 (98-107) mmol/L Carbon Dioxide 25 (22-30) mmol/L Anion Gap 6 mmol/L BUN 16 (7-17) mg/dL Creatinine 0.60 (0.52-1.04) mg/dL Est GFR (CKD-EPI)AfAm >90 (>60 ml/min/1.73 sqM) Est GFR (CKD-EPI)NonAf >90 (>60 ml/min/1.73 sqM) Glucose 92 (74-99) mg/dL Calcium 9.6 (8.4-10.2) mg/dL Magnesium 2.1 (1.6-2.3) mg/dL Total Bilirubin 1.0 (0.2-1.3) mg/dL AST 31 (14-36) U/L ALT 17 (4-34) U/L Alkaline Phosphatase 50 (38-126) U/L Troponin I <0.012 (0.000-0.034) ng/mL Total Protein 7.0 (6.3-8.2) g/dL Albumin 4.4 (3.5-5.0) g/dL Lipase 53 (23-300) U/L 03/29/21 03/29/21 Range/Units 13:27 13:27 WBC 6.3 (3.8-10.6) k/uL RBC 4.69 (3.80-5.40) m/uL Hgb 15.3 (11.4-16.0) gm/dL Hct 45.7 (34.0-46.0) % MCV 97.6 (80.0-100.0) fL MCH 32.6 (25.0-35.0) pg MCHC 33.4 (31.0-37.0) g/dL RDW 12.9 (11.5-15.5) % Plt Count 198 (150-450) k/uL MPV 9.5 Neutrophils % 64 % Lymphocytes % 28 % Monocytes % 4 % Eosinophils % 2 % Basophils % 1 % Neutrophils # 4.0 (1.3-7.7) k/uL Lymphocytes # 1.7 (1.0-4.8) k/uL Monocytes # 0.3 (0-1.0) k/uL Eosinophils # 0.1 (0-0.7) k/uL Basophils # 0.1 (0-0.2) k/uL PT 10.6 (9.0-12.0) sec INR 1.0 (<1.2) APTT 24.2 (22.0-30.0) sec Sodium (137-145) mmol/L Potassium (3.5-5.1) mmol/L Chloride (98-107) mmol/L Carbon Dioxide (22-30) mmol/L Anion Gap mmol/L BUN (7-17) mg/dL Creatinine (0.52-1.04) mg/dL Est GFR (CKD-EPI)AfAm (>60 ml/min/1.73 sqM) Est GFR (CKD-EPI)NonAf (>60 ml/min/1.73 sqM) Glucose (74-99) mg/dL Calcium (8.4-10.2) mg/dL Magnesium (1.6-2.3) mg/dL Total Bilirubin (0.2-1.3) mg/dL AST (14-36) U/L ALT (4-34) U/L Alkaline Phosphatase (38-126) U/L Troponin I (0.000-0.034) ng/mL Total Protein (6.3-8.2) g/dL Albumin (3.5-5.0) g/dL Lipase (23-300) U/L Disposition Clinical Impression: Chest pain, Dysphagia Disposition: ADMITTED IP TO THIS HOSP Referrals: Ephraim Whitmore MD [Primary Care Provider] - 1-2 days Time of Disposition: 14:52
[2021-03-29 13:44] LABS: Basophils # (A) 0.1 k/uL (0-0.2); Basophils % (A) 1 %; Eosinophils # (A) 0.1 k/uL (0-0.7); Eosinophils % (A) 2 %; HCT 45.7 % (34.0-46.0); HGB 15.3 gm/dL (11.4-16.0); Lymphocytes # (A) 1.7 k/uL (1.0-4.8); Lymphocytes % (A) 28 %; MCH 32.6 pg (25.0-35.0); MCHC 33.4 g/dL (31.0-37.0); MCV 97.6 fL (80.0-100.0); Mean Platelet Volume 9.5; Monocytes # (A) 0.3 k/uL (0-1.0); Monocytes % (A) 4 %; Neutrophils % (A) 64 %; Platelet Count 198 k/uL (150-450); RBC 4.69 m/uL (3.80-5.40); RDW 12.9 % (11.5-15.5); WBC 6.3 k/uL (3.8-10.6)
[2021-03-29 14:03] LABS: Partial Thromboplastin Time 24.2 sec (22.0-30.0); Prothrombin Time 10.6 sec (9.0-12.0)
--- NOTE | 2021-03-29 14:06 | XR ---
EXAMINATION TYPE: XR chest 2V DATE OF EXAM: 03/29/2021 COMPARISON: 05/02/2017 TECHNIQUE: PA and lateral views submitted. HISTORY: Chest pain FINDINGS: The lungs are clear and there is no pneumothorax, pleural effusion, or focal pneumonia. Hyperinflat ion noted. Heart size normal. No overt failure. Arthropathy of the shoulders. Hypertrophic and degene rative change of the spine. IMPRESSION: 1. No acute process.
[2021-03-29] MEDS ORDERED: NITROGLYCERIN SL TABS 0.4 MG TAB SUBLINGUAL PRN (14:53)
[2021-03-29] MEDS ORDERED: busPIRone HCl 5 MG TAB PO PRN (15:32)
[2021-03-29] MEDS ORDERED: HYDROcodone/APAP 10-325MG 1 EACH TAB PO PRN (15:32)
--- NOTE | 2021-03-29 17:43 | P.HPIM ---
History of Present Illness Patient is 66-year-old female came in emergency department with on and off epigastric abdominal pain and feeling of fullness and food struck in the lower esophageal area going on for a few days the symptoms usually happen at nighttime not related to food but lately patient was having the symptoms during the day as well on and off last for about 5 minutes. Patient denied any symptoms that are consistent with odynophagia. Patient pain is sharp moderate severity in the epigastric area. Patient denied any chest pain although patient was worked up for acute coronary syndromes or EKG did not show any significant abnormality troponin was negative. Patient denied any fever chills cough. Patient denied any nausea vomiting. REVIEW OF SYSTEMS: CONSTITUTIONAL: No fever, no malaise, no fatigue. HEENT: No recent visual problems or hearing problems. Denied any sore throat. CARDIOVASCULAR: No chest pain, orthopnea, PND, no palpitations, no syncope. PULMONARY: No shortness of breath, no cough, no hemoptysis. GASTROINTESTINAL: No diarrhea, no nausea, no vomiting, no abdominal pain. NEUROLOGICAL: No headaches, no weakness, no numbness. HEMATOLOGICAL: Denies any bleeding or petechiae. GENITOURINARY: Denies any burning micturition, frequency, or urgency. MUSCULOSKELETAL/RHEUMATOLOGICAL: Denies any joint pain, swelling, or any muscle pain. ENDOCRINE: Denies any polyuria or polydipsia. The rest of the 14-point review of systems is negative. PHYSICAL EXAMINATION: GENERAL: The patient is alert and oriented x3, not in any acute distress. Well developed, well nourished. HEENT: Pupils are round and equally reacting to light. EOMI. No scleral icterus. No conjunctival pallor. Normocephalic, atraumatic. No pharyngeal erythema. No thyromegaly. CARDIOVASCULAR: S1 and S2 present. No murmurs, rubs, or gallops. PULMONARY: Chest is clear to auscultation, no wheezing or crackles. ABDOMEN: Soft, nontender, nondistended, normoactive bowel sounds. No palpable organomegaly. MUSCULOSKELETAL: No joint swelling or deformity. EXTREMITIES: No cyanosis, clubbing, or pedal edema. NEUROLOGICAL: Gross neurological examination did not reveal any focal deficits. SKIN: No rashes. Assessment and plan -Dysphagia: Will order barium esophagogram, patient uses alendronate which can cause esophagitis patient doesn't have any odynophagia, esophageal spasm is a consideration -Ruled out acute coronary syndromes -Epigastric abdominal discomfort possibility of peptic ulcer disease or gastritis patient was started on Protonix -Nicotine abuse: Counseling was provided -Depression -Hyperlipidemia continue with atorvastatin DVT prophylaxis: Ambulation Past Medical History Past Medical History: No Reported History History of Any Multi-Drug Resistant Organisms: None Reported Past Surgical History: Orthopedic Surgery Additional Past Surgical History / Comment(s): Cataract surgery Past Psychological History: Anxiety Smoking Status: Current every day smoker Past Alcohol Use History: None Reported Past Drug Use History: None Reported Medications and Allergies Home Medications Medication Instructions Recorded Confirmed Type Alendronate Sodium 35 mg PO LEGER 10/07/20 03/29/21 History Ergocalciferol [Vitamin D2 (1250 1,250 mcg PO Q30D 10/07/20 03/29/21 History Mcg = 10361 Iu)] Oxybutynin Chloride [Oxybutynin 30 mg PO HS 10/07/20 03/29/21 History Chloride ER] Primidone [Mysoline] 50 mg PO BID 10/07/20 03/29/21 History busPIRone HCL 15 mg PO BID PRN 10/07/20 03/29/21 History Aspirin EC [Ecotrin Low Dose] 81 mg PO DAILY 03/29/21 03/29/21 History Atorvastatin [Lipitor] 40 mg PO HS 03/29/21 03/29/21 History Taylor Gummy 1 tab PO DAILY 03/29/21 03/29/21 History HYDROcodone/APAP 10-325MG [[place] 1 tab PO QID PRN 03/29/21 03/29/21 History 10-325] Multivitamin [Multivitamins Adult 1 tab PO DAILY 03/29/21 03/29/21 History Gummies] Pantoprazole Sodium [Protonix] 40 mg PO DAILY 03/29/21 03/29/21 History Topiramate [Topamax] 25 mg PO BID 03/29/21 03/29/21 History Allergies Allergy/AdvReac Type Severity Reaction Status Date / Time No Known Allergies Allergy Verified 03/29/21 14:17 Physical Exam Vitals: Vital Signs Temp Pulse Resp BP Pulse Ox 03/29/21 14:10 71 18 142/74 96 03/29/21 13:24 51 L 18 155/82 99 03/29/21 13:20 18 03/29/21 10:01 97.7 F 74 18 118/80 96 Intake and Output 03/29/21 03/29/21 03/29/21 06:59 14:59 22:59 Other: Weight 79.379 kg Results CBC & Chem 7: 03/29/21 13:27 03/29/21 11:30
[2021-03-29 19:32] VITALS: RESP 16
[2021-03-29] MEDS ORDERED: OXYBUTYNIN 15 MG TAB.ER.24 PO SCH (21:00)
[2021-03-29] MEDS ORDERED: ATORVASTATIN 40 MG TAB PO SCH (21:00)
[2021-03-29] MEDS: NITROGLYCERIN OINT 1 INCH/GM PACKET TOPICAL SCH (22:27)
[2021-03-29] MEDS: PANTOPRAZOLE 40 MG/10 ML VIAL IVP SCH (23:12)
[2021-03-29] MEDS: PRIMIDONE 50 MG TAB PO SCH (23:13)
[2021-03-29] MEDS: TOPIRAMATE 25 MG TAB PO SCH (23:13)
[2021-03-30] MEDS: NITROGLYCERIN OINT 1 INCH/GM PACKET TOPICAL SCH ×3 (00:43→13:20)
[2021-03-30] MEDS: PANTOPRAZOLE 40 MG/10 ML VIAL IVP SCH (07:40)
[2021-03-30] MEDS: TOPIRAMATE 25 MG TAB PO SCH (07:41)
[2021-03-30] MEDS: PRIMIDONE 50 MG TAB PO SCH (07:41)
[2021-03-30] MEDS ORDERED: ASPIRIN 325 MG TAB PO SCH (09:00)
[2021-03-30] MEDS ORDERED: ASPIRIN 81 MG PO SCH (09:00)
--- NOTE | 2021-03-30 10:23 | FL ---
Barium swallow HISTORY: Dysphasia 1.2 minutes fluoroscopy time supplied to the referring clinician. 18 intraoperative C-arm images. Patient was given high density barium to drink. The swallowing mechanism is normal. There is no extrinsic or intrinsic esophageal mass. Tertiary esop hageal contractions were identified. On prone images small sliding hiatal hernia was identified. No o bstruction to flow. IMPRESSION: Small sliding hiatal hernia. Tertiary esophageal contractions.
[2021-03-30 10:28] LABS: Chol/HDL Ratio 2.71; LDL Cholesterol,Calculated 58.4 mg/dL (0.0-131.0); VLDL Calculation 23.6 mg/dL (5.00-40.00)
--- NOTE | 2021-03-30 10:58 | P.CRDCN ---
History of Present Illness History of present illness: HISTORY OF PRESENTING ILLNESS This is a pleasant 67-year-old female past medical history significant for dyslipidemia, acid reflux, chronic nicotine dependence. She does not follow with a card assembler.. We have been asked to see in consultation for chest pain. Patient is seen and examined at bedside. Patient states that about a month ago she started having increased epigastric pain after eating. She states specifically when eating a sandwich she feels as if her food is getting stuck. She states this happens about 1-2 times per week and only happens after she eats a sandwich. She would also drink some water to help, which would worsen her epigastric pain. She mostly gets the epigastric pain at night. Describes it as sharp. It lasts less than 5 minutes. It is non-radiating, non exertional. Sometimes associated with shortness of breath. Yesterday, what made her present to the emergency department is she was walking around the grocery store during the day and started to have epigastric pain. This pain is exactly what she gets at night, however, she was concerned that she had it during the day so she decided to come to the ER. She had associated shortness of breath, some mild n ausea. She denies diaphoresis, lightheadedness or dizziness. She states she did not eat anything prior to this. The pain was non-radiating. She denies any aggravating or alleviating factors. She is a current every day smoker, smokes 1 PPD. Denies alcohol or illicit drug use. She states she recently saw her PCP and was started on protonix 40mg daily, and did not see a significant difference. She denies family history of heart disease. She denies history of coronary artery disease, OR, stroke, or diabetes. She states that she has been told she has borderline hypertension but is not on any current medical therapy. DIAGNOSTICS EKG reveals sinus rhythm, heart rate 66, no significant STT wave abnormalities. Prior EKG in September 2020 similar. EKGs morning was sinus bradycardia, heart rate 50, no significant STT wave abnormalities Telemetry tracings indicate sinus rhythm, heart rate 50sto 70s Chest xray no acute cardiopulmonary process Most recent stress test 11/2017stress echo revealed no echocardiographic evidence of ischemia. Borderline EKG changes during peak exercise and into r ecovery sinus or shortness of breath. LV systolic function remains normal. Laboratory reviewed, CBC unremarkable, sodium 137, potassium 5.1, BUN 16, serum 0.6, troponin negative 3, magnesium 2.1, lipase 53 Current home medications include Topamax twice a day, Protonix 40 mg daily, when necessary Stanton, atorvastatin 40 mg nightly, aspirin 1 mg daily. REVIEW OF SYSTEMS At the time of my exam: CONSTITUTIONAL: Denies fever or chills. CARDIOVASCULAR: +epigastric pain +shortness of breath Denies chest pain, orthopnea, PND or palpitations. RESPIRATORY: Denies cough. GASTROINTESTINAL: +nausea Denies abdominal pain, diarrhea, constipation, nausea or vomiting. MUSCULOSKELETAL: Denies myalgias. NEUROLOGIC: Denies numbness, tingling, headacbe or weakness. ENDOCRINE: Denies fatigue, weight change, polydipsia or polyurina. GENITOURINARY: Denies burning, hematuria or urgency with micturation. HEMATOLOGIC: Denies history of anemia or bleeding. PHYSICAL EXAMINATION Blood pressure 109/69 heart rate 50 afebrile and maintaining oxygen saturation 95% on room air CONSTITUTIONAL: No apparent distress. HEENT: Head is normocephalic. Pupils are equal, round. Sclerae anicteric. Mucous membranes of the mouth are moist. No JVD. No carotid bruit. CHEST EXAMINATION: Lungs are clear to auscultation. No chest wall tenderness is noted on palpation or with deep breathing. HEART EXAMINATION: Regular rate and rhythm. S1, S2 heard. No murmurs, gallops or rub. ABDOMEN: Soft, nontender. Positive bowel sounds. EXTREMITIES: 2+ peripheral pulses, no lower extremity edema and no calf tenderness. SKIN: no rashes or wounds NEUROLOGIC EXAMINATION: Patient is awake, alert and oriented x3. ASSESSMENT Epigastric Pain , nausea Dyslipidemia Chronic nicotine dependence PLAN An acute coronary event has been ruled out with no EKG evidence of ischemia and negative cardiac enzymes. Obtain 2D echocardiogram and doppler study to assess cardiac structure and function. If echocardiogram with no acute findings, Patient may proceed with further GI workup with no additional cardiac testing or procedures. Patient does not have any risk factors of history of congestive heart failure, history of arrhythmia, history of ischemic heart disease, or history of CVA, or acute kidney injury. Patient is able to perform >4 METs levels of activity and does not currently have any acute cardiac conditions. Patient is hemodynamically stable. Thank you kindly for this consultation. Nurse Practitioner note has been reviewed, I agree with a documented findings and plan of care. Patient was seen and examined. Past Medical History Past Medical History: No Reported History History of Any Multi-Drug Resistant Organisms: None Reported Past Surgical History: Orthopedic Surgery Additional Past Surgical History / Comment(s): Cataract surgery Past Psychological History: Anxiety Smoking Status: Current some day smoker Past Alcohol Use History: None Reported Past Drug Use History: None Reported Medications and Allergies Home Medications Medication Instructions Recorded Confirmed Type Alendronate Sodium 35 mg PO LEGER 10/07/20 03/29/21 History Ergocalciferol [Vitamin D2 (1250 1,250 mcg PO Q30D 10/07/20 03/29/21 History Mcg = 90221 Iu)] Oxybutynin Chloride [Oxybutynin 30 mg PO HS 10/07/20 03/29/21 History Chloride ER] Primidone [Mysoline] 50 mg PO BID 10/07/20 03/29/21 History busPIRone HCL 15 mg PO BID PRN 10/07/20 03/29/21 History Aspirin EC [Ecotrin Low Dose] 81 mg PO DAILY 03/29/21 03/29/21 History Atorvastatin [Lipitor] 40 mg PO HS 03/29/21 03/29/21 History Taylor Gummy 1 tab PO DAILY 03/29/21 03/29/21 History HYDROcodone/APAP 10-325MG [[place] 1 tab PO QID PRN 03/29/21 03/29/21 History 10-325] Multivitamin [Multivitamins Adult 1 tab PO DAILY 03/29/21 03/29/21 History Gummies] Pantoprazole Sodium [Protonix] 40 mg PO DAILY 03/29/21 03/29/21 History Topiramate [Topamax] 25 mg PO BID 03/29/21 03/29/21 History Allergies Allergy/AdvReac Type Severity Reaction Status Date / Time No Known Allergies Allergy Verified 03/29/21 14:17 Physical Exam Vitals: Vital Signs Temp Pulse Pulse Resp BP BP Pulse Ox 03/30/21 02:00 47 L 16 03/30/21 01:48 97.7 F 47 L 16 111/75 97 03/29/21 20:00 47 L 16 03/29/21 19:31 97.9 F 66 16 132/56 98 03/29/21 19:00 97.7 F 58 L 18 104/67 97 03/29/21 18:13 58 L 18 104/67 97 03/29/21 14:10 71 18 142/74 96 03/29/21 13:24 51 L 18 155/82 99 03/29/21 13:20 18 03/29/21 10:01 97.7 F 74 18 118/80 96 Intake and Output 03/29/21 03/30/21 03/30/21 22:59 06:59 14:59 Other: # Voids 1 1 Weight 79.379 kg Results 03/29/21 13:27 03/29/21 11:30 Cardiac Enzymes 03/29/21 03/29/21 03/29/21 Range/Units 11:30 11:30 16:06 AST 31 (14-36) U/L Troponin I <0.012 <0.012 (0.000-0.034) ng/mL 03/29/21 Range/Units 18:46 AST (14-36) U/L Troponin I <0.012 (0.000-0.034) ng/mL Coagulation 03/29/21 Range/Units 13:27 PT 10.6 (9.0-12.0) sec APTT 24.2 (22.0-30.0) sec CBC 03/29/21 Range/Units 13:27 WBC 6.3 (3.8-10.6) k/uL RBC 4.69 (3.80-5.40) m/uL Hgb 15.3 (11.4-16.0) gm/dL Hct 45.7 (34.0-46.0) % Plt Count 198 (150-450) k/uL Comprehensive Metabolic Panel 03/29/21 Range/Units 11:30 Sodium 137 (137-145) mmol/L Potassium 5.1 (3.5-5.1) mmol/L Chloride 106 (98-107) mmol/L Carbon Dioxide 25 (22-30) mmol/L BUN 16 (7-17) mg/dL Creatinine 0.60 (0.52-1.04) mg/dL Glucose 92 (74-99) mg/dL Calcium 9.6 (8.4-10.2) mg/dL AST 31 (14-36) U/L ALT 17 (4-34) U/L Alkaline Phosphatase 50 (38-126) U/L Total Protein 7.0 (6.3-8.2) g/dL Albumin 4.4 (3.5-5.0) g/dL Current Medications Generic Name Dose Route Start Last Admin Trade Name Freq PRN Reason Stop Dose Admin Hydrocodone Bitart/Acetaminophen 1 each 03/29/21 15:32 Hydrocodone/Apap 10-325mg 1 Each Tab PO QID PRN Pain Aspirin 81 mg 03/30/21 09:00 Aspirin 81 Mg PO DAILY MILLY Atorvastatin Calcium 40 mg 03/29/21 21:00 03/29/21 23:13 Atorvastatin 40 Mg Tab PO 40 mg HS MILLY Administration Buspirone HCl 15 mg 03/29/21 15:32 Buspirone Hcl 5 Mg Tab PO BID PRN Anxiety Nitroglycerin 0.4 mg 03/29/21 14:53 Nitroglycerin Sl Tabs 0.4 Mg Tab SUBLINGUAL Q5M PRN Chest Pain Nitroglycerin 1 inch 03/29/21 19:00 03/30/21 05:42 Nitroglycerin Oint 1 Inch/Gm Packet TOPICAL 1 inch Q6HR MILLY Administration Oxybutynin Chloride 30 mg 03/29/21 21:00 03/29/21 23:13 Oxybutynin 15 Mg Tab.Er.24 PO 30 mg HS MILLY Administration Pantoprazole Sodium 40 mg 03/29/21 21:00 03/29/21 23:12 Pantoprazole 40 Mg/10 Ml Vial IVP 40 mg BID MILLY Administration Primidone 50 mg 03/29/21 21:00 03/29/21 23:13 Primidone 50 Mg Tab PO 50 mg BID MILLY Administration Topiramate 25 mg 03/29/21 21:00 03/29/21 23:13 Topiramate 25 Mg Tab PO 25 mg BID MILLY Administration Intake and Output 03/29/21 03/30/21 03/30/21 22:59 06:59 14:59 Other: # Voids 1 1 Weight 79.379 kg 03/29/21 13:27 03/29/21 11:30
--- NOTE | 2021-03-30 13:40 | ECHOF ---
Referral Reason:LV function, shortness breath MEASUREMENTS -------- HEIGHT: 162.6 cm WEIGHT: 79.4 kg BP: 109/69 RVIDd: 3.3 cm (< 3.3) IVSd: 1.3 cm (0.6 - 1.1) LVIDd: 3.9 cm (3.9 - 5.3) LVPWd: 1.3 cm (0.6 - 1.1) IVSs: 1.5 cm LVIDs: 2.8 cm LVPWs: 1.8 cm LAESV Index (A-L): 24.91 ml/m Ao Diam: 3.0 cm (2.0 - 3.7) AV Cusp: 1.9 cm (1.5 - 2.6) LA Diam: 3.0 cm (2.7 - 3.8) MV EXCURSION: 18.414 mm (> 18.000) MV EF SLOPE: 125 mm/s (70 - 150) EPSS: 0.4 cm MV E Lencho: 0.81 m/s MV DecT: 239 ms MV A Lencho: 0.94 m/s MV E/A Ratio: 0.86 RAP: 5.00 mmHg RVSP: 28.92 mmHg FINDINGS -------- Resting bradycardia (HR<60bpm). This was a technically adequate study. The left ventricular size is normal. There is mild concentric left ventricular hypertrophy. Overa ll left ventricular systolic function is normal with, an EF between 55 - 60 %. The diastolic fillin g pattern is normal for the age of the patient 12.47. The right ventricle is mildly enlarged. Normal LA size by volume 22+/-6 ml/m2. The right atrial size is normal. Interatrial and interventricular septum intact. The aortic valve is trileaflet and appears structurally normal. There is no evidence of aortic regu rgitation. There is no evidence of aortic stenosis. No mitral regurgitation. Mild tricuspid regurgitation present. There is no evidence of pulmonary hypertension. The right v entricular systolic pressure, as measured by Doppler, is 28.92mmHg. There is no pulmonic regurgitation present. The aortic root size is normal. Normal inferior vena cava with normal inspiratory collapse consistent with estimated right atrial pre ssure of 5 mmHg. There is no pericardial effusion. CONCLUSIONS -------- 1. The left ventricular size is normal. 2. There is mild concentric left ventricular hypertrophy. 3. Overall left ventricular systolic function is normal with, an EF between 55 - 60 %. 4. The diastolic filling pattern is normal for the age of the patient 12.47 5. The right ventricle is mildly enlarged. 6. Mild tricuspid regurgitation present. GREEK PROFESSOR: Leila Salcedo RDCS
[2021-03-30 14:52] VITALS: BP 111/73; PULSE 60; TEMP 98.2
--- NOTE | 2021-03-30 15:43 | P.DS ---
Providers Date of admission: 03/29/21 14:59 Attending physician: Darius Paris Consults: 03/29/21 14:53 Consult Physician Urgent Consulting Provider: [facility] Consult Reason/Comments: Chest pain Do you want consulting provider notified?: Yes Consult Physician Urgent Consulting Provider: Krishna Reynoso Reason/Comments: Dysphasia Do you want consulting provider notified?: Yes Primary care physician: Myranda Ye Hospital Course: Final diagnoses -Dysphagia: MBS revealed tertiary esophageal contractions. Increase Protonix to twice a day. -Ruled out acute coronary syndromes, echo pending, troponins negative 3. EF 55-60%, cardiology cleared -Epigastric abdominal discomfort possibility of peptic ulcer disease or gastritis patient was started on Protonix -Nicotine abuse: Counseling was provided -Depression -Hyperlipidemia continue with atorvastatin Discharge disposition Patient is discharged home in a stable condition. Patient was evaluated by GI services this admission, increase Protonix to twice a day. Patient will follow- up with GI services in 4 weeks. Patient was evaluated by cardiology this admission, EF within normal limits at 55-60%, troponins negative. Patient denies chest pain. Patient will follow-up with PCP. Hospital course Patient is a 66 year old female who came in the emergency department with on and off epigastric abdominal pain, and feeling of foreign 7. In the lower esophageal area going on for a few days. The symptoms usually happen anytime, not related to food but lately patient was having symptoms in the day as well on and off lasting 5 minutes. Patient says the pain is sharp, moderate severity in the epigastric area. Patient today any chest pain, patient was evaluated by billing coordinator for a rule out acute coronary syndrome. EKG did not show any significant abnormality, troponins were negative times levels. Patient had an echocardiogram completed this admission that showed an EF of 55-60%, mild tricuspid regurg. Patient was cleared by cardiology services. Patient was evaluated by GI services, will increase patient's Protonix to 40 mg by mouth twice a day. Patient will follow-up with GI services in 4 weeks at the office. Patient had a chemistry panel, metabolic panel, coag panel, cholesterol panel, cardiac markers, all lab values were within normal limits this admission. Vital signs have remained stable, afebrile. Blood pressure 111/73. Heart rate 60. Please see progress note for 03/30/2021. Please see medication reconciliation for list of current medications. Plan - Discharge Summary Discharge Rx Participant: No New Discharge Prescriptions: Continue busPIRone HCL 15 mg PO BID PRN PRN Reason: Anxiety Primidone [Mysoline] 50 mg PO BID Oxybutynin Chloride [Oxybutynin Chloride ER] 30 mg PO HS Alendronate Sodium 35 mg PO LEGER Ergocalciferol [Vitamin D2 (1250 Mcg = 10117 Iu)] 1,250 mcg PO Q30D Atorvastatin [Lipitor] 40 mg PO HS HYDROcodone/APAP 10-325MG [[place] 10-325] 1 tab PO QID PRN PRN Reason: Pain Taylor Gummy 1 tab PO DAILY Topiramate [Topamax] 25 mg PO BID Multivitamin [Multivitamins Adult Gummies] 1 tab PO DAILY Aspirin EC [Ecotrin Low Dose] 81 mg PO DAILY Changed Pantoprazole Sodium [Protonix] 40 mg PO BID #60 tab Discharge Medication List Alendronate Sodium 35 mg PO LEGER 10/07/20 [History] Ergocalciferol [Vitamin D2 (1250 Mcg = 54720 Iu)] 1,250 mcg PO Q30D 10/07/20 [History] Oxybutynin Chloride [Oxybutynin Chloride ER] 30 mg PO HS 10/07/20 [History] Primidone [Mysoline] 50 mg PO BID 10/07/20 [History] busPIRone HCL 15 mg PO BID PRN 10/07/20 [History] Aspirin EC [Ecotrin Low Dose] 81 mg PO DAILY 03/29/21 [History] Atorvastatin [Lipitor] 40 mg PO HS 03/29/21 [History] Taylor Gummy 1 tab PO DAILY 03/29/21 [History] HYDROcodone/APAP 10-325MG [[place] 10-325] 1 tab PO QID PRN 03/29/21 [History] Multivitamin [Multivitamins Adult Gummies] 1 tab PO DAILY 03/29/21 [History] Topiramate [Topamax] 25 mg PO BID 03/29/21 [History] Pantoprazole Sodium [Protonix] 40 mg PO BID #60 tab 03/30/21 [Rx] Follow up Appointment(s)/Referral(s): Ephraim Whitmore MD [Primary Care Provider] - 1-2 days Fany Gonsales MD [STAFF PHYSICIAN] - 4 Weeks Activity/Diet/Wound Care/Special Instructions: Follow-up with GI services Follow-up with PCP Discharge Disposition: HOME SELF-CARE
--- NOTE | 2021-03-30 16:14 | P.CONS ---
History of Present Illness - Reason for Consult Consult date: 03/30/21 Dysphasia Requesting physician: Darius Paris - Chief Complaint Chest pain - History of Present Illness This is a 66-year-old white female who presented to the emergency department because she was having pain in her chest which she states was more in the esophageal area. Patient states she's been having a similar pain over the last 2 weeks especially after eating and drinking. States for 2 months she was having intermittent feelings of choking especially when trying to swallow solids. States that sometimes it feels like food is hard to go down. She denies any previous EGD, peptic ulcer disease or NSAID use. She was started on Protonix 40 mg and takes that daily. She underwent a barium swallow that shows a small sliding hiatal hernia. Review of Systems REVIEW OF SYSTEMS: CARDIOPULMONARY: No chest pain or shortness of breath. Gastrointestinal: Epigastric pain with eating.. No nausea or vomiting. No h ematemesis, coffee-ground emesis. No rectal bleeding, or melena. Feeling of food getting stuck intermittently. GENITOURINARY: No dysuria or hematuria. MUSCULOSKELETAL: Reports normal range of motion., Joint pain. SKIN: No rashes. No jaundice. ENDOCRINE: No chills, fevers. No excessive weight gain or loss. No polydipsia or polyuria. PSYCHIATRIC: Unremarkable. NEUROLOGY: No change in mental status. Denies dizziness, headache. ENT: Vision unremarkable. CONSTITUTIONAL: No recent weight loss. No fever, chills, night sweats. Past Medical History Past Medical History: No Reported History History of Any Multi-Drug Resistant Organisms: None Reported Past Surgical History: Orthopedic Surgery Additional Past Surgical History / Comment(s): Cataract surgery Past Psychological History: Anxiety Smoking Status: Current some day smoker Past Alcohol Use History: None Reported Past Drug Use History: None Reported Medications and Allergies Home Medications Medication Instructions Recorded Confirmed Type Alendronate Sodium 35 mg PO LEGER 10/07/20 03/29/21 History Ergocalciferol [Vitamin D2 (1250 1,250 mcg PO Q30D 10/07/20 03/29/21 History Mcg = 49254 Iu)] Oxybutynin Chloride [Oxybutynin 30 mg PO HS 10/07/20 03/29/21 History Chloride ER] Primidone [Mysoline] 50 mg PO BID 10/07/20 03/29/21 History busPIRone HCL 15 mg PO BID PRN 10/07/20 03/29/21 History Aspirin EC [Ecotrin Low Dose] 81 mg PO DAILY 03/29/21 03/29/21 History Atorvastatin [Lipitor] 40 mg PO HS 03/29/21 03/29/21 History Taylor Gummy 1 tab PO DAILY 03/29/21 03/29/21 History HYDROcodone/APAP 10-325MG [[place] 1 tab PO QID PRN 03/29/21 03/29/21 History 10-325] Multivitamin [Multivitamins Adult 1 tab PO DAILY 03/29/21 03/29/21 History Gummies] Topiramate [Topamax] 25 mg PO BID 03/29/21 03/29/21 History Pantoprazole Sodium [Protonix] 40 mg PO BID #60 tab 03/30/21 Rx Allergies Allergy/AdvReac Type Severity Reaction Status Date / Time No Known Allergies Allergy Verified 03/29/21 14:17 Physical Exam Vitals: Vital Signs Temp Pulse Pulse Resp BP BP Pulse Ox 03/30/21 07:00 97.8 F 50 L 16 109/69 95 03/30/21 02:00 47 L 16 03/30/21 01:48 97.7 F 47 L 16 111/75 97 03/29/21 20:00 47 L 16 03/29/21 19:31 97.9 F 66 16 132/56 98 03/29/21 19:00 97.7 F 58 L 18 104/67 97 03/29/21 18:13 58 L 18 104/67 97 03/29/21 14:10 71 18 142/74 96 03/29/21 13:24 51 L 18 155/82 99 03/29/21 13:20 18 03/29/21 10:01 97.7 F 74 18 118/80 96 Intake and Output 03/29/21 03/30/21 03/30/21 22:59 06:59 14:59 Other: # Voids 1 1 Weight 79.379 kg General appearance: The patient is alert, oriented, appears in no acute distress. HET: Head is normocephalic and atraumatic. Conjunctiva pink. Sclera anicteric. Neck: Supple without lymphadenopathy. Trachea midline. Heart: S1 S2. Regular rate and rhythm. Lungs: Clear to auscultation. Abdomen: Soft, nontender, nondistended with bowel sounds. No guarding or rigidity. Skin: No rashes. No jaundice. Extremities: Normal skin color and turgor. No pedal edema. Neurological: No focal deficits. Alert and oriented 3.. Results CBC & Chem 7: 03/29/21 13:27 03/29/21 11:30 Comments: Barium swallow shows evidence of small hiatal hernia. Assessment and Plan (1) Dysphagia Narrative/Plan: 66-year-old female who presented to the emergency department with complaints of epigastric pain/chest pain. Patient states over the last 2 months she's had intermittent issues with difficulty with swallowing solid foods and feeling like she is choking. Patient states over the last 2 weeks she has been getting more frequent pain in her epigastric area, now sometimes gets it after drinking water at night. Denies any associated nausea or vomiting. She has no previous history of EGD or peptic ulcer disease, denies any use of NSAIDs. States that she was told that she had some acid reflux possibly was started on Protonix 40 mg daily. She underwent a barium swallow which showed a small sliding hiatal hernia. Likely dealing with gastroesophageal reflux disease. Will increase Protonix to 40 mg twice a day and follow-up with gastroenterology for outpatient EGD. Current Visit: Yes Status: Acute Code(s): R13.10 - DYSPHAGIA, UNSPECIFIED SNOMED Code(s): 99534173 Plan: 1. Regular diet as tolerated 2. Barium swallow reviewed 3. Protonix 40 mg twice a day 4. Patient is cleared by gastroenterology for discharge. Recommend outpatient follow-up in 4 weeks with gastroenterology to schedule outpatient EGD. Patient will be started on Protonix 40 mg twice a day at home. 5. Discussed with patient diet modifications, decrease caffeine intake, and no eating 2 hours before bedtime. Thank you for this consultation and allowing us take part in the plan of care of your patient during her hospital stay. Dr. Reynoso I agree with the dictator's note, documented as a scribe by Shaniqua Olvera.
== END 2021-03-30 16:35 | disposition home or self-care (01) ==
LOC: EC 10:00 → 1SOBS 14:59 → 6NMEDSUR 16:23
PROVIDERS: ADMIT Internal Medicine; ATTEND Internal Medicine
DX: K22.4 Dyskinesia of esophagus (principal); R10.13 Epigastric pain; K21.9 Gastro-esophageal reflux disease without esophagitis; F17.210 Nicotine dependence, cigarettes, uncomplicated; R07.9 Chest pain, unspecified; Z71.6 Tobacco abuse counseling; R00.1 Bradycardia, unspecified; F32.9 Major depressive disorder, single episode, unspecified; E78.5 Hyperlipidemia, unspecified; F41.9 Anxiety disorder, unspecified; I07.1 Rheumatic tricuspid insufficiency; K44.9 Diaphragmatic hernia without obstruction or gangrene; Z79.82 Long term (current) use of aspirin; Z79.899 Other long term (current) drug therapy; Z98.49 Cataract extraction status, unspecified eye
CPT/HCPCS: 96376; 96374; 93005 ×2; 99285; 36415; 93306; 80061; 80053; 83690; 83735; 84484; 85025; 85610; 85730; 74220; 71046; G0378 ×2; C9113 ×2

== ENCOUNTER 2021-06-08 09:44 | Day surgery (SDC) | payer OTHER ==
[2021-06-03 14:53] VITALS: BMI 29.3
[~2021-06-08 09:44] MED LIST changes: -DEXAMETHASONE SOD PHOSPHATE 4 MG/ML 1 ML VIAL IV ONE; -HYDROmorphone 0.5 MG/0.5 ML SYRINGE IVP PRN; -ONDANSETRON 4 MG/2 ML VIAL IVP ONE
[2021-06-08 10:18] VITALS: TEMP 97.8
[2021-06-08] MEDS ORDERED: LACTATED RINGERS 1,000 ML IV ONE (10:19)
[2021-06-08] MEDS ORDERED: MIDAZOLAM 2 MG/2 ML VIAL ONE (10:48)
[2021-06-08] MEDS ORDERED: LIDOCAINE 1% INJ 10MG/ML (20 ML MDV) ONE (10:48)
[2021-06-08] MEDS ORDERED: fentaNYL (PF) 50 MCG/ML 2 ML AMP ONE (10:48)
[2021-06-08] MEDS ORDERED: PROPOFOL 10 MG/ML 20 ML VIAL IV ONE (10:48)
--- NOTE | 2021-06-08 11:11 | P.PCN ---
Date of Procedure: 06/08/21 Procedure(s) Performed: Brief history: Patient is a pleasant 66-year-old white female scheduled for an elective upper endoscopy as well as colonoscopy as a part of evaluation of GERD/intermittent dysphagia to solids and history of colon polyps. Her last colonoscopy was 5 years ago. Procedure performed: Esophagogastroduodenoscopy biopsy Colonoscopy Preoperative diagnosis: GERD/intermittent dysphagia to solids History of colon polyps Anesthesia: MAC Procedure: After informed consent was obtained from the patient was brought into the endoscopy unit and IV sedation was administered by anesthesia under continuous monitoring. Initially upper endoscopy was done. The Olympus GF 160 video endoscope was inserted inserted into the mouth and esophagus intubated without any difficulty and was gradually advanced into the stomach and duodenum and carefully examined. The bulb and second part of the duodenum appeared normal. The scope was then withdrawn into the stomach adequately insufflated with air and upon careful examination the antrum had gastritis and biopsies were done from this area. The body, cardia and fundus appeared normal. The scope was then withdrawn into the esophagus. The GE junction was located at 40 cm to the incisors. It appeared regular with no erythema erosions or ulcerations. the lower esophageal sphincter appeared slightly tight. The distal esophagus appeared slightly dilated with some evidence of esophagitis and multiple biopsies were done from this area to rule out eosinophilic esophagitis. The rest of esophagus appeared normal Patient tolerated the procedure well. At this time the patient continued to remain sedation. Initial digital rectal examination was normal. Olympus CF 160 video colonoscope was then inserted into the rectum and gradually advanced to the cecum without any difficulty. Careful examination was performed as the scope was gradually being withdrawn. The prep was excellent. The cecum, ascending colon, transverse colon, descending colon, sigmoid colon and rectum appeared normal. Retroflexion was performed in the rectum and no lesions were noted. Patient tolerated the procedure well. Impression: 1. Upper endoscopy revealed mild antral gastritis and slightly dilated esophagus with tight lower esophageal sphincter and evidence of esophagitis suspicious for esophageal achalasia 2. Colonoscopy was within normal limits with no evidence of colitis or colorectal neoplasia Recommendations: Findings of this examination were discussed with the patient as well as a family. she was advised to follow with the biopsy results. She will continue with Protonix 40 mg daily and follow antireflux measures. She'll have a repeat colonoscopy in 5 years because of prior history of colon polyps.
[2021-06-08 11:39] VITALS: BP 126/81; PULSE 61; RESP 16
== END 2021-06-08 12:01 | disposition home or self-care (01) ==
LOC: ORWHC2ENDO 09:44
PROVIDERS: ATTEND Internal Medicine Gastroenterology
DX: Z12.11 Encounter for screening for malignant neoplasm of colon (principal); K21.00 Gastro-esophageal reflux disease with esophagitis, without bleeding; Z86.010 Personal history of colon polyps; K29.70 Gastritis, unspecified, without bleeding; R13.10 Dysphagia, unspecified; J44.9 Chronic obstructive pulmonary disease, unspecified; F17.210 Nicotine dependence, cigarettes, uncomplicated; Z98.891 History of uterine scar from previous surgery; Z98.42 Cataract extraction status, left eye; Z98.41 Cataract extraction status, right eye; Z98.890 Other specified postprocedural states; Z90.49 Acquired absence of other specified parts of digestive tract; Z97.2 Presence of dental prosthetic device (complete) (partial); Z79.82 Long term (current) use of aspirin; Z79.899 Other long term (current) drug therapy
CPT/HCPCS: 88305; 43239; J2250; J2001; J3010; J2704; G0105; 45378

== ENCOUNTER 2022-01-15 13:12 | Emergency (ER) | payer OTHER ==
[2022-01-15 14:50] VITALS: RESP 18; TEMP 98.1
[2022-01-15] MEDS ORDERED: LIDOCAINE/EPINEPHR/TETRACAINE 5 ML BOTTLE TOPICAL ONE (15:42)
--- NOTE | 2022-01-15 16:22 | ED ---
General Adult HPI - General Chief complaint: Wound/Laceration Stated complaint: finger injury Time Seen by Provider: 01/15/22 15:26 Source: patient, RN notes reviewed Mode of arrival: ambulatory Limitations: no limitations - History of Present Illness Initial comments: 66-year-old female presents to the emergency department for evaluation of injury to the index finger of her right hand. Patient states she was placing a large umbrella in its stand when her finger caught on the pushpin. States the wound was actively bleeding prior to arrival and she had to hold pressure to get it under control. Did not take anything for pain prior to arrival. Denies any other injury at this time. - Related Data Home Medications Medication Instructions Recorded Confirmed Alendronate Sodium 35 mg PO LEGER 10/07/20 06/03/21 Ergocalciferol [Vitamin D2 (1250 1,250 mcg PO Q30D 10/07/20 06/03/21 Mcg = 59418 Iu)] Oxybutynin Chloride [Oxybutynin 15 mg PO BID 10/07/20 06/03/21 Chloride ER] Primidone [Mysoline] 50 mg PO HS 10/07/20 06/03/21 busPIRone HCL 15 mg PO BID PRN 10/07/20 06/03/21 Aspirin EC [Ecotrin Low Dose] 81 mg PO DAILY 03/29/21 06/03/21 Atorvastatin [Lipitor] 40 mg PO HS 03/29/21 06/03/21 Taylor Gummy 1 tab PO DAILY 03/29/21 06/03/21 HYDROcodone/APAP 10-325MG [[place] 1 tab PO QID PRN 03/29/21 06/03/21 10-325] Multivitamin [Multivitamins Adult 1 tab PO DAILY 03/29/21 06/03/21 Gummies] Previous Rx's Medication Instructions Recorded Pantoprazole Sodium [Protonix] 40 mg PO BID #60 tab 03/30/21 Allergies Allergy/AdvReac Type Severity Reaction Status Date / Time No Known Allergies Allergy Verified 01/15/22 14:50 Review of Systems ROS Statement: Those systems with pertinent positive or pertinent negative responses have been documented in the HPI. ROS Other: All systems not noted in ROS Statement are negative. Past Medical History Past Medical History: COPD, GERD/Reflux, Hyperlipidemia, Sleep Apnea/CPAP/BIPAP Additional Past Medical History / Comment(s): no cpap used since wt loss, hiatal hernia, overactive bladder, tremors rt hand History of Any Multi-Drug Resistant Organisms: None Reported Past Surgical History: Appendectomy, Section, Orthopedic Surgery, Tubal Ligation Additional Past Surgical History / Comment(s): elie Cataract surgery, rt knee surgery for torn ligaments Past Anesthesia/Blood Transfusion Reactions: No Reported Reaction Past Psychological History: Anxiety Smoking Status: Current some day smoker - Past Family History Mother Family Medical History: No Reported History General Exam Limitations: no limitations (Well-developed, well-nourished female in no acute distress. Initial temperature 98.1, pulse 74, respirations 18, blood pressure 123/74, pulse ox 96% on room air.) General appearance: alert, in no apparent distress Respiratory exam: Present: normal lung sounds bilaterally. Absent: respiratory distress, wheezes, rales, rhonchi, stridor Cardiovascular Exam: Present: regular rate, normal rhythm, normal heart sounds. Absent: systolic murmur, diastolic murmur, rubs, gallop, clicks GI/Abdominal exam: Present: soft, normal bowel sounds. Absent: distended, tenderness, guarding, rebound, rigid Right Forearm Wrist exam: Present: normal inspection, full ROM. Absent: tenderness, swelling Hand Wrist exam: Present: full ROM, other (One centimeter avulsion injury radial surface of the proximal phalanx, second digit on the right hand. No active bleeding. Flexion and extension intact.). Absent: tenderness, swelling Neuro motor exam: Present: fingers 2-5 abduction intact Vascular: Present: vascular compromise, normal capillary refill, radial pulse. Absent: Pallo Neurological exam: Present: alert, oriented X3, CN II-XII intact Psychiatric exam: Present: normal affect, normal mood Skin exam: Present: warm, dry Course Vital Signs 01/15/22 01/15/22 14:46 16:36 Temperature 98.1 F Pulse Rate 74 76 Respiratory 18 18 Rate Blood Pressure 123/78 134/84 O2 Sat by Pulse 96 97 Oximetry - Reevaluation(s) Reevaluation #1: 01/15/22 16:00 Let applied. Wound cleansed. Bacitracin dressing applied. Medical Decision Making - Medical Decision Making 66-year-old female with a past medical history of COPD and GERD presents to the emergency department for evaluation of injury to the second digit of the right hand. Upon exam, patient is well-appearing and in no acute distress. She has a one centimeter avulsion injury on the middle phalanx of the affected digit. No active bleeding. Range of motion intact. Let was applied. Wound was thoroughly cleansed and bacitracin dressing applied. Tetanus is up-to-date. Patient is instructed to follow up with her PCP for a wound recheck. Return parameters discussed in detail. Patient verbalizes understanding and agrees with this plan. Attending: Nathaniel. Disposition Clinical Impression: Avulsion of skin of finger Disposition: HOME SELF-CARE Condition: Stable Instructions (If sedation given, give patient instructions): Acute Wound Care (ED) Additional Instructions: Gently cleanse wound twice daily with mild soap and water. Applied bacitracin or Neosporin to the wound and cover with Band-Aid. Follow-up with your PCP for a wound recheck if needed. Return to the emergency department with any new, worsening, or concerning symptoms. Is patient prescribed a controlled substance at d/c from ED?: No Referrals: Vivienne Luz DO [Primary Care Provider] - 1-2 days Time of Disposition: 16:22
[2022-01-15 16:37] VITALS: BP 134/84; PULSE 76
== END 2022-01-15 16:45 | disposition home or self-care (01) ==
LOC: EC 13:12
DX: S61.200A Unspecified open wound of right index finger without damage to nail, initial encounter (principal); J44.9 Chronic obstructive pulmonary disease, unspecified; E78.5 Hyperlipidemia, unspecified; F17.200 Nicotine dependence, unspecified, uncomplicated; W26.8XXA Contact with other sharp object(s), not elsewhere classified, initial encounter

== ENCOUNTER → 2022-11-23 | Outpatient (CLI) | payer MEDICARE, OTHER ==
[2022-11-23 13:00] LABS: African American GFR (CKD) >90 (>60 ml/min/1.73 sqM); Blood Urea Nitrogen 15 mg/dL (7-17); Non-African American GFR(CKD) >90 (>60 ml/min/1.73 sqM)
--- NOTE | 2022-11-23 14:09 | CT ---
EXAMINATION TYPE: CT angio abdomen DATE OF EXAM: 11/23/2022 COMPARISON: None HISTORY: Abdominal aortic aneurysm. CT DLP: 872.7 mGycm CONTRAST: CTA abdominal aorta with 3-D reconstruction is performed and without and with IV Contrast, patient in jected with 100ml mL of Isovue 370. Contrast CTA of the abdominal aorta was performed from the lung base through the base of the pelvis. 3-D reconstruction imaging obtained at a separate workstation. CONTRAST CT ABDOMEN AND PELVIS ABDOMINAL AORTA: Distal abdominal aortic aneurysm extending to the level of the aortic bifurcation me asures 3.3 cm AP dimension with a length of approximately 4 cm. No extension into the iliac vessels. The remainder of the abdominal aorta is of normal caliber. Atheromatous changes are noted. Major bran ch vessels are patent. LIVER/GB- No significant abnormality is seen. PANCREAS- No significant abnormality is seen. SPLEEN- No significant abnormality is seen. ADRENALS- No significant abnormality is seen. KIDNEYS/BLADDER- No significant abnormality is seen. BOWEL- No Significant abnormality LYMPH NODES- No greater than 1cm abdominal or pelvic lymph nodes are appreciated. OSSEOUS STRUCTURES- No significant abnormality is seen. OTHER- No significant abnormality is seen. IMPRESSION- Distal abdominal aortic aneurysm as noted.
== END | disposition home or self-care (01) ==
LOC: RADCTMAIN 12:11
PROVIDERS: ATTEND Family Medicine
DX: I71.40 Abdominal aortic aneurysm, without rupture, unspecified (principal)
CPT/HCPCS: 82565; 84520; 74175; 36415; Q9967

== ENCOUNTER → 2023-06-15 | Outpatient (CLI) | payer MEDICARE, OTHER ==
[2023-06-15 17:34] LABS: ALT 21 U/L (8-44); AST 18 U/L (13-35); Albumin 4.4 d/dL (3.8-4.9); Alkaline Phosphatase 61 U/L (41-126); BUN/Creat Ratio 20.88 Ratio (12.00-20.00); Blood Urea Nitrogen 16.7 mg/dL (9.0-27.0); Calcium 10.1 mg/dL (8.7-10.3); Carbon Dioxide 29.8 mmol/L (21.6-31.8); Chloride 106 mmol/L (96-109); Chol/HDL Ratio 1.91 Ratio; Glucose 108 mg/dL (70-110); Potassium 5.1 mmol/L (3.5-5.5); Sodium 146 mmol/L (135-145); Total Bilirubin 0.7 mg/dL (0.3-1.2); Total Protein 6.4 d/dL (6.2-8.2)
[2023-06-15 17:55] LABS: HCT 47.3 % (37.2-46.3); HGB 15.4 d/dL (12.0-15.0); MCH 31.6 pg (27.0-32.0); MCHC 32.6 d/dL (32.0-37.0); MCV 97.1 FL (80.0-97.0); Mean Platelet Volume 13.8 FL (9.5-12.2); NRBC Per 100 WBC 0 X 10*3/uL (0.00-0.01); Platelet Count 195 X 10*3/uL (140-440); RBC 4.87 X 10*6/uL (4.10-5.20); RDW 14.2 % (11.5-14.5); WBC 7.55 X 10*3/uL (4.50-10.00)
== END | disposition home or self-care (01) ==
LOC: LABWHC1 10:06
PROVIDERS: ATTEND Nurse Practitioner Acute Care
DX: Z13.220 Encounter for screening for lipoid disorders (principal); E78.2 Mixed hyperlipidemia; R53.83 Other fatigue; R73.02 Impaired glucose tolerance (oral)
CPT/HCPCS: 36415; 80053; 80061; 83036; 84443; 85027

== ENCOUNTER → 2023-12-14 | Outpatient (CLI) | payer MEDICARE, OTHER ==
--- NOTE | 2023-12-17 11:24 | MM ---
Reason for Exam: Screening (asymptomatic). Last mammogram was performed 4 year(s) and 3 month(s) ago. Patient History: Menarche at age 16. First Full-Term at age 22. Postmenopausal. 1999, Excisional Biopsy on the Left side. Risk Values: Machelle 5 year model risk: 1.6%. NCI Lifetime model risk: 5.8%. Prior Study Comparison: 08/29/2018 Right Diagnostic Mammogram, [facility]. 02/26/2019 Right Diagnostic Mammogram, [facility]. 09/17/2019 Bilateral Screening Mammogram, [facility]. Tissue Density: The breasts are almost entirely fatty. Findings: Analyzed By CAD. Right breast: There is no suspicious group of microcalcifications or new suspicious mass. Left breast: There is no suspicious group of microcalcifications or new suspicious mass. Overall Assessment: Negative, BI-RAD 1 Management: Screening Mammogram of both breasts in [address] [facility] will attempt to contact patient to return for supplemental views and ultrasound if indicated. Patient should continue monthly self-breast exams. A clinical breast exam by your physician is recommended on an annual basis. This exam should not preclude additional follow-up of suspicious palpable abnormalities. Note on Machelle scores and lifetime risk: 1. A Machelle score greater than 3% is considered moderate risk. If this is the case, consider specialist referral to assess eligibility for a risk reducing agent. 2. If overall lifetime risk for the development of breast cancer is 20% or higher, the patient may qualify for future screening with alternating mammogram and breast MRI. Electronically signed and approved by: Richy Grissom DO
== END | disposition home or self-care (01) ==
LOC: RADMAMWWP 14:04
PROVIDERS: ATTEND Family Medicine
DX: Z12.31 Encounter for screening mammogram for malignant neoplasm of breast (principal); Z78.0 Asymptomatic menopausal state
CPT/HCPCS: 77063; 77067

== ENCOUNTER → 2024-11-05 | Outpatient (CLI) | payer MEDICARE, OTHER ==
--- NOTE | 2024-11-05 13:53 | CTL ---
EXAMINATION TYPE: CT Low Dose Lung DATE OF EXAM ORDERED: 11/05/2024 COMPARISON: CTA chest 05/02/2017 CLINICAL INDICATION: Female, 69 years old with history of Z12.2 SCREENING F17.210 GERHARD DEP; [facility], Curre nt smoker. 1PPD x50yrs., Lung cancer screening, History of Smoking/tobacco use. TECHNIQUE: Low dose computed tomography scan was performed through the chest at 1 mm thick sections a nd reconstructed images in multiple planes at 1 mm and [address] DLP: 151.[address] CTDI: 4.3 mGy Automated exposure control for dose reduction was used. CT DIAGNOSTIC QUALITY: Satisfactory FINDINGS: Nodules: No clinically significant pulmonary nodule. LUNGS: COPD: Severity: Mild centrilobular emphysematous changes. Fibrosis: Severity: None Lymph nodes: None Other findings: None RIGHT PLEURAL SPACE: Effusion: None Calcification: None Thickening: None Pneumothorax: None LEFT PLEURAL SPACE: Effusion: None Calcification: None Thickening: None Pneumothorax: None HEART: Heart Size: Normal Coronary Calcification: Mild Pericardial Effusion: None OTHER FINDINGS: Upper abdomen: None Bony thorax: Mild multilevel degenerative disc disease of the thoracic spine. Supraclavicular region: None Other: Mild atherosclerotic calcification of the aorta and its branches. IMPRESSION: 1. No clinically significant pulmonary nodules. 2. Mild emphysematous changes. CT LUNG RAD AND CT CHEST RECOMMENDATION: Lung-Rad 1 Negative: Continue annual screening with LDCT in 12 months. S Modifier (other clinically significant findings): None [facility], , 11/05/2024 1:50 PM
== END | disposition home or self-care (01) ==
LOC: RADCTMAIN 13:21
PROVIDERS: ATTEND Family Medicine
DX: Z12.2 Encounter for screening for malignant neoplasm of respiratory organs (principal); J43.2 Centrilobular emphysema; F17.210 Nicotine dependence, cigarettes, uncomplicated
CPT/HCPCS: 71271

== ENCOUNTER → 2024-12-29 | Outpatient (CLI) | payer MEDICARE, OTHER ==
--- NOTE | 2024-12-29 15:37 | MM ---
Reason for Exam: Screening (asymptomatic). Last mammogram was performed 1 year(s) and 1 month(s) ago. Patient History: Menarche at age 16. First Full-Term at age 22. Postmenopausal. 2000, Excisional Biopsy on the Left side. Risk Values: Machelle 5 year model risk: 1.6%. NCI Lifetime model risk: 5.6%. Prior Study Comparison: 02/26/2019 Right Diagnostic Mammogram, [facility]. 09/17/2019 Bilateral Screening Mammogram, [facility]. 12/14/2023 Bilateral MG 3D screening mammo w/cad, [facility]. Tissue Density: There are scattered areas of fibroglandular density. Findings: Analyzed By CAD. There are small benign-appearing round calcifications in bilateral breasts. There are a few small right sub-5 mm mass bilateral breasts redemonstrated. Stable asymmetric tissue upper aspect left breast. There is no suspicious group of microcalcifications or new suspicious mass in either breast. Overall Assessment: Benign, BI-RAD 2 Management: Screening Mammogram of both breasts in 1 year. . Patient should continue monthly self-breast exams. A clinical breast exam by your physician is recommended on an annual basis. This exam should not preclude additional follow-up of suspicious palpable abnormalities. Note on Machelle scores and lifetime risk: 1. A Machelle score greater than 3% is considered moderate risk. If this is the case, consider specialist referral to assess eligibility for a risk reducing agent. 2. If overall lifetime risk for the development of breast cancer is 20% or higher, the patient may qualify for future screening with alternating mammogram and breast MRI. [facility], , 12/29/2024 3:34 PM. Electronically signed and approved by: Aldo Weller M.D.
== END | disposition home or self-care (01) ==
LOC: RADMAMWWP 14:37
PROVIDERS: ATTEND Family Medicine
DX: Z12.31 Encounter for screening mammogram for malignant neoplasm of breast (principal); R92.323 Mammographic fibroglandular density, bilateral breasts; Z78.0 Asymptomatic menopausal state
CPT/HCPCS: 77063; 77067